=== PATIENT | female | born 1965 | race Caucasian/White ===

== ENCOUNTER 2019-12-06 08:49 | Outpatient (CLI) | payer OTHER, SELFPAY ==
--- NOTE | ~2019-12-06 | NM_ITS ---
NM stress w perf spect multi Procedure: The patient was stressed using Modified Spike protocol. Prior to the end of exercise 30 m Ci Tc 99m IV administered. Rest imaging performed following administration of 10.9 mCi Tc 99m IV. I mages were reformatted into short axis, horizontal and vertical long axis sections for visual and zeenat ntitative analysis. Indication: Shortness of breath Comparison: None Findings: Computer assisted qualitative and quantitative analysis of the immediate and delayed images revealed normal left ventricular perfusion without evidence of fixed or reversible perfusion abnorma lity to suggest ischemia or infarction. Normal left ventricular cavity size, wall motion and ejectio n fraction. Left ventricular ejection fraction measures 79. Impression: 1: No scintigraphic evidence of resting or stress induced perfusion abnormality. 2: Normal left ventricle ejection fraction measuring 79%. Reviewed, dictated and finalized at location A. Impression: 1: No scintigraphic evidence of resting or stress induced perfusion abnormality . 2: Normal left ventricle ejection fraction measuring 79%.
--- NOTE | 2019-12-06 09:07 | EST_ITS ---
Patient Info Name: Poornima Casas Age: 54 years : 1965 Gender: Female Ht: 63 in Wt: 150 lbs BSA: 1.76 m2 Exam Date: 12/06/2019 11:18 AM Exam Location: [facility] Stress Patient Status: Outpatient Admit Date: 12/06/2019 Staff Ordering Physician: Jose Andrade PA-C Attending Provider: Jose Andrade PA-C Exercise Technologist: Bhargavi Blas RDCS Exercise Physician: Dmitry Barton DO Exam Type: CA stress test treadmill w NM Study Info Indications R06.02 - Shortness of breath A pharmacological stress test was performed. Summary 1. 1. Negative Spike exercise stress test for ischemic ST changes by ECG criteria. 2. 2. Reduced functional capacity, achieving 7 METs of workload. 3. 3. Appropriate HR response to exercise. 4. 4. Appropriate HR recovery at 1 minute post exercise. 5. 5. Nuclear scan to follow and will be reported separately. Please correlate with it. 6. 6. Patient informed of the above results. Protocol: Spike Stress ECG Details Stage: REST Duration (min): 0 min : 50 sec Speed (mph): 0.0 Grade (%): 0 HR (bpm): 65 SBP (mmHg): 137 DBP (mmHg): 77 METS: --- Stage: REST Duration (min): 9 min : 29 sec Speed (mph): 0.0 Grade (%): 0 HR (bpm): 73 SBP (mmHg): 137 DBP (mmHg): 77 METS: --- Stage: STAGE 1 Duration (min): 1 min : 0 sec Speed (mph): 1.7 Grade (%): 10 HR (bpm): 96 SBP (mmHg): 137 DBP (mmHg): 77 METS: --- Stage: STAGE 1 Duration (min): 2 min : 0 sec Speed (mph): 1.7 Grade (%): 10 HR (bpm): 113 SBP (mmHg): 137 DBP (mmHg): 77 METS: --- Stage: STAGE 1 Duration (min): 3 min : 0 sec Speed (mph): 1.7 Grade (%): 10 HR (bpm): 123 SBP (mmHg): 177 DBP (mmHg): 75 METS: --- Stage: STAGE 2 Duration (min): 1 min : 0 sec Speed (mph): 2.5 Grade (%): 12 HR (bpm): 138 SBP (mmHg): 177 DBP (mmHg): 75 METS: --- Stage: STAGE 2 Duration (min): 2 min : 0 sec Speed (mph): 2.5 Grade (%): 12 HR (bpm): 151 SBP (mmHg): 177 DBP (mmHg): 75 METS: --- Stage: STAGE 2 Duration (min): 2 min : 31 sec Speed (mph): 2.5 Grade (%): 12 HR (bpm): 155 SBP (mmHg): 177 DBP (mmHg): 75 METS: --- Stage: RECOVERY Duration (min): 0 min : 28 sec Speed (mph): 0.0 Grade (%): 0 HR (bpm): 148 SBP (mmHg): 177 DBP (mmHg): 75 METS: --- Stage: RECOVERY Duration (min): 1 min : 28 sec Speed (mph): 0.0 Grade (%): 0 HR (bpm): 113 SBP (mmHg): 171 DBP (mmHg): 89 METS: --- Stage: RECOVERY Duration (min): 2 min : 28 sec Speed (mph): 0.0 Grade (%): 0 HR (bpm): 96 SBP (mmHg): 171 DBP (mmHg): 89 METS: --- Stage: RECOVERY Duration (min): 3 min : 28 sec Speed (mph): 0.0 Grade (%): 0 HR (bpm): 96 SBP (mmHg): 178 DBP (mmHg): 92 METS: --- Stage:
--- NOTE | 2019-12-09 16:54 | WPDHOLTEREM ---
Holter/Event Monitor Holter/Event Monitor Date of procedure: 12/06/19 Procedure Type: 24 hour holter monitor Indications: Palpitations Conclusion: 1. 24 hour holter monitor on 12/06/19. 2. Underlying rhythm is sinus rhythm. HR range 51-112 bpm; average HR 77 bpm. 3. There are 29 premature supraventricular complexes. No supraventricular tachycardia. 4. There are 4 premature ventricular complexes and 1 ventricular couplet. No ventricular tachycardia. 5. No sinoatrial or atrioventricular blocks. No significant pauses greater than 2 seconds. 6. No symptoms available for correlation.
== END 2019-12-06 08:50 | disposition home or self-care (01) ==
LOC: ANHCARD 08:56
PROVIDERS: PCP Physician Assistant; Visit Provider Physician Assistant
DX: R00.2 Palpitations (principal); R06.02 Shortness of breath
CPT/HCPCS: 78452; 93017; 93225; 93226; A9502

== ENCOUNTER 2021-01-09 16:24 | Outpatient (CLI) | payer OTHER, SELFPAY ==
[2021-01-09 17:14] LABS: Add Urine Microscopic? NO; Appearance Urine Clear (Clear); Bilirubin Urine Negative (Negative); Blood Urine Negative (Negative); Color Urine Yellow (Yellow); Glucose Urine UA Negative (Negative); Ketones Urine Negative (Negative); Leukocyte Esterase Ur Negative LEU/UL (NEGATIVE); Nitrate Urine Negative (Negative); Protein Urine Negative (Negative); Specific Grav Ur 1.024 (1.001-1.035); Urobilinogen Urine Negative mg/dL (<2.0)
== END 2021-01-09 16:25 | disposition home or self-care (01) ==
LOC: ANHLAB 16:26
PROVIDERS: PCP Physician Assistant; Visit Provider Physician Assistant
DX: R10.9 Unspecified abdominal pain (principal)
CPT/HCPCS: 81003; 87077; 87086; 87088

== ENCOUNTER 2021-08-09 16:56 | Outpatient (CLI) | payer OTHER, SELFPAY ==
--- NOTE | ~2021-08-09 | MM_ITS ---
EXAMINATION: MM screening chadd BI w rashawn HISTORY: Screening mammogram TECHNIQUE: Craniocaudal and mediolateral oblique 3-D tomosynthesis images were obtained and synthetic 2-D images were generated. CAD analysis was submitted and interpreted. COMPARISON: 08/04/2014 BREAST PARENCHYMAL COMPOSITION: The breasts are heterogeneously dense, which may obscure small masses . FINDINGS: Scattered benign-appearing calcifications are present. There is no evidence of suspicious m ass, calcification, or architectural distortion to suggest malignancy in either breast. There has bee n no suspicious interval change. IMPRESSION: 1. No mammographic evidence of malignancy. 2. Recommend routine screening mammography in one year. BI-RADS Category 2: Benign finding(s). Reviewed, dictated and finalized at location A. USEMENT OR RECREATION CARD CHECKER
== END 2021-08-09 16:57 | disposition home or self-care (01) ==
LOC: ANHIMG 16:57
PROVIDERS: PCP Physician Assistant; Visit Provider Obstetrics & Gynecology
DX: Z12.31 Encounter for screening mammogram for malignant neoplasm of breast (principal)
CPT/HCPCS: 77063; 77067

== ENCOUNTER 2022-07-29 07:19 | Day surgery (SDC) | payer OTHER, SELFPAY ==
[2022-07-22 13:38] VITALS: BMI 25.5
--- NOTE | 2022-07-29 06:56 | P.PNAN_ITS ---
Anes - Initial Pre Proc Eval Procedure: Operation Date: 07/29/22 09:00 Proposed Procedures p Screening Colonoscopy - Keny Stone MD Date/Time: 07/29/22 06:56 Surgeon: Keny Stone MD Pre Op Diagnosis: Neoplasm Screening Patient Data Age: 57 Gender: F Height: 1.6 m Weight: 65.5 kg Allergies Allergy/AdvReac Type Severity Reaction Status Date / Time No Known Allergies Allergy Unknown Verified 07/29/22 08:15 Home Medications Medication Instructions Recorded Confirmed Type estradiol-norethindrone acet 1 1 tablet PO DAILY 09/28/19 07/29/22 History mg-0.5 mg tablet zolpidem 10 mg tablet 10 mg PO .hs 09/28/19 07/29/22 History cyanocobalamin (vitamin B-12) 1,000 mcg PO DAILY #90 tabs 07/09/21 07/29/22 Rx 1,000 mcg tablet sodium,potassium,mag sulfates 17.5 See Rx Instructions PO .COMPLEX 07/19/22 07/29/22 Rx gram-3.13 gram-1.6 gram oral soln #354 mL (Suprep Bowel Prep Kit) Patient hx anesthesia problems: none Family hx anesthesia problems: none Results Review: All pre-operative results and documents have been reviewed as part of the pre- operative evaluation. [facility] Past Medical History Medical History (Updated 07/29/22 @ 08:56 by Chintan Riley DO) COPD (chronic obstructive pulmonary disease) his respiratory failure requiring intubation 2015 Family History Family History Father Patient's father is in good health Sibling Patient's sister is in good health Patient's brother is in good health Mother Family history of lung cancer, Onset Age: 61 Social History Social History (Updated 07/29/22 @ 08:56 by Chintan Riley DO) Smoking status: Former smoker Second hand tobacco smoke exposure: No Smoking end date: 04/08/16 Additional smoking assessment comments: 1.5 PPD x 20 years prior Alcohol intake: current Substance use type: does not use Lack of Transportation: No Lack of Food: Never True Current Housing: I Have Housing Concerned About Future Housing: No Difficulty Paying Gas/Electric Bills: No Difficulty Paying for Meds: No Currently Unemployed: No Education: High School Diploma/GED Difficulty w/ Childcare or Family Care: No Living arrangements: with family Spiritual care concerns: No Anes - Eval Final PreProcedure Day of Procedure 07/29/22 06:56 Patient weight: overweight Heart: regular rate and rhythm Lungs: clear to auscultation Airway: Mallampati scale class II Neurological: alert and oriented Last oral intake: >/= 8 hours ASA classification: III Emergent: no Anesthetic plan: proceed Anesthesia type and monitoring: general GIVS and standard monitoring Results Review: All pre-operative results and documents have been reviewed as part of the pre- operative evaluation. Informed Consent: The patient's anesthetic plan and its attendant risks and benefits were discussed with the patient/family/POA. Questions were solicited and answers provided to the satisfaction of the patient/family/POA.
[2022-07-29 07:30] VITALS: BP 102/57; PULSE 74; RESP 20; TEMP 36.7; O2SAT 98
[2022-07-29] MEDS: LACTATED RINGERS 1,000 ML 150 ML IV CONT (08:20)
--- NOTE | 2022-07-29 08:23 | P.HP_ITS ---
History of Present Illness History of Present Illness Consent: Risks, benefits, and alternatives have been discussed and questions answered. Patient agrees to proceed with procedure. Chief complaint: Neoplasm Screening Narrative: Poornima Casas is a 57 year old female Presents for screening colonoscopy. Patient's current weight appetite bowel movements are normal. Patient denies abdominal pain she has had no bleeding. Family history is significant her gra ndmother had colon cancer. Her mother had polyps. Patient presents today for screening colonoscopy Review of Systems Review of Systems: review of systems noncontributory. [facility] Family History Family History Father Patient's father is in good health Sibling Patient's sister is in good health Patient's brother is in good health Mother Family history of lung cancer, Onset Age: 61 Social History Social History Smoking status: Never smoker Second hand tobacco smoke exposure: No Smoking end date: 04/08/16 Alcohol intake: current Substance use type: does not use Lack of Transportation: No Lack of Food: Never True Current Housing: I Have Housing Concerned About Future Housing: No Difficulty Paying Gas/Electric Bills: No Difficulty Paying for Meds: No Currently Unemployed: No Education: High School Diploma/GED Difficulty w/ Childcare or Family Care: No Living arrangements: with family Spiritual care concerns: No Meds Home Medications and Allergies Home Medications Medication Instructions Recorded Confirmed Type estradiol-norethindrone acet 1 1 tablet PO DAILY 09/28/19 07/29/22 History mg-0.5 mg tablet zolpidem 10 mg tablet 10 mg PO .hs 09/28/19 07/29/22 History cyanocobalamin (vitamin B-12) 1,000 mcg PO DAILY #90 tabs 07/09/21 07/29/22 Rx 1,000 mcg tablet sodium,potassium,mag sulfates 17.5 See Rx Instructions PO .COMPLEX 07/19/22 07/29/22 Rx gram-3.13 gram-1.6 gram oral soln #354 mL (Suprep Bowel Prep Kit) Allergies Allergy/AdvReac Type Severity Reaction Status Date / Time No Known Allergies Allergy Unknown Verified 07/29/22 08:15 Vital Signs Vital Signs - 24 hr 07/29/22 07:30 Temperature 98.0 F Pulse Rate 74 Respiratory Rate 20 Blood Pressure 102/57 L Pulse Oximetry 98 Oxygen Delivery Room Air Exam Narrative: Physical exam reveals patient to be alert. Vital signs stable. HEENT exam is unremarkable. Patient is anicteric. Lungs are clear to a uscultation and percussion. Heart is without murmur or extra sounds. Abdomen bowel sounds are present soft nontender with no organomegaly. Digital external rectal exam is normal. Assessment and Plan Assessment and plan (1) Family history of colonic polyps: Code(s): Z83.71 - Family history of colonic polyps Status: Acute Assessment and Plan: Patient's mother there had colon polyps. Her grandmother had colon cancer. Plan to consider follow-up colonoscopy at 5-7 years in the future.
[2022-07-29 09:18] VITALS: BP 110/60; PULSE 72; RESP 16; O2SAT 100
[2022-07-29 09:28] VITALS: BP 118/60; PULSE 68; RESP 16; O2SAT 98
--- NOTE | 2022-07-29 09:35 | SUR.PHASEII ---
PT AWAKE AND ALERT. TALKATIVE. DRINKING WATER. DENIES PAIN.
[2022-07-29 09:38] VITALS: BP 115/56; PULSE 68; RESP 16; O2SAT 98
--- NOTE | 2022-07-29 12:42 | WPDANESPN ---
Anes - Prog Note Post-Op Date/Time: 07/29/22 12:42 Cardiovascular status: normal Respiratory status: normal Airway patency: baseline Mental status: baseline Post-Op hydration status: normal Vital Signs: Last Vital Signs Temp 36.7 C 07/29/22 07:30 Pulse 68 07/29/22 09:38 Resp 16 07/29/22 09:38 BP 115/56 L 07/29/22 09:38 Pulse Ox 98 07/29/22 09:38 O2 Del Method Room Air 07/29/22 09:38 Pain Score (VAS): 0 I/O: Intake & Output 07/28/22 07/29/22 07/29/22 23:59 07:59 15:59 Intake Total 700 Balance 700 Post-procedural complaints: none Patient Feedback: Patient satisfied with anesthetic care. Other Findings: Patient vital signs back to baseline. Patient denies nausea and vomiting. Patient's pain under control. Patient OK for discharge.
== END 2022-07-29 09:53 | disposition home or self-care (01) ==
PROVIDERS: PCP Physician Assistant; Visit Provider Internal Medicine Gastroenterology
PROC: 0DJD8ZZ Inspection of Lower Intestinal Tract, Via Natural or Artificial Opening Endoscopic (ICD-10-PCS; CPT 45378; principal; 2022-07-29 09:00)
DX: Z83.71 Family history of colonic polyps (principal)
CPT/HCPCS: 45378

== ENCOUNTER 2022-09-03 16:14 | Outpatient (CLI) | payer OTHER, SELFPAY ==
--- NOTE | ~2022-09-03 | MM_ITS ---
EXAMINATION: MM screening chadd BI w rashawn HISTORY: Screening TECHNIQUE: Craniocaudal and mediolateral oblique 3-D tomosynthesis images were obtained and synthetic 2-D images were generated. CAD analysis was submitted and interpreted. COMPARISON: Comparison to multiple prior studies sequentially, with oldest reviewed study dated 08/04. BREAST PARENCHYMAL COMPOSITION: The breasts are heterogeneously dense, which may obscure small masses FINDINGS: There is no evidence of suspicious mass, calcification, or architectural distortion to sugg est malignancy in either breast. There has been no suspicious interval change. IMPRESSION: 1. No mammographic evidence of malignancy. 2. Recommend routine screening mammography in one year. BI-RADS Category 1: Negative Reviewed, dictated and finalized at location A.
== END 2022-09-03 16:15 | disposition home or self-care (01) ==
PROVIDERS: PCP Physician Assistant; Visit Provider Obstetrics & Gynecology
DX: Z12.31 Encounter for screening mammogram for malignant neoplasm of breast (principal)
CPT/HCPCS: 77063; 77067

== ENCOUNTER 2023-11-19 15:34 | Outpatient (CLI) | payer OTHER, SELFPAY ==
--- NOTE | ~2023-11-19 | MM_ITS ---
EXAMINATION: MM screening chadd BI w rashawn HISTORY: Screening TECHNIQUE: Craniocaudal and mediolateral oblique 3-D tomosynthesis images were obtained and synthetic 2-D images were generated. CAD analysis was submitted and interpreted. COMPARISON: Comparison to multiple prior studies sequentially, with oldest reviewed study dated 08/04. BREAST PARENCHYMAL COMPOSITION: Dense: The breasts are extremely dense, which lowers the sensitivity of mammography. FINDINGS: There is no evidence of suspicious mass, calcification, or architectural distortion to sugg est malignancy in either breast. There has been no suspicious interval change. IMPRESSION: 1. No mammographic evidence of malignancy. 2. Recommend routine screening mammography in one year. BI-RADS Category 1: Negative Reviewed, dictated and finalized at location B.
== END 2023-11-19 15:35 | disposition home or self-care (01) ==
LOC: ANHIMG 15:36
PROVIDERS: PCP Physician Assistant; Visit Provider Obstetrics & Gynecology
DX: Z12.31 Encounter for screening mammogram for malignant neoplasm of breast (principal)
CPT/HCPCS: 77063; 77067

== ENCOUNTER 2024-03-21 14:25 | Emergency (ER) | payer OTHER, SELFPAY ==
--- NOTE | ~2024-03-21 | XR_ITS ---
EXAM: XR ankle RT min 3V DATE: 03/21/2024 14:45 HISTORY: FALL YESTERDAY SWELLING AND PAIN UP THE LEG TO MID TIBFIB . COMPARISON: None available. FINDINGS: Normal mineralization. No fracture or dislocation. No lytic or blastic lesion. Mild degene rative change at the ankle joint and multiple midfoot joints. Achilles enthesopathy. No erosion or pe riosteal change. Soft tissues within normal limits. IMPRESSION: No acute osseous finding the right ankle. Reviewed, dictated and finalized at location K.
--- NOTE | ~2024-03-21 | XR_ITS ---
EXAM: XR foot RT min 3V, XR tibia fibula RT 2V DATE: 03/21/2024 15:19 HISTORY: swollen ankle, foot injury . COMPARISON: None available. FINDINGS: Normal mineralization. Tiny ossific fragment at the tip of the medial malleolus. Oblique m inimally displaced fracture of the fibular head. No lytic or blastic lesion. Moderate scattered degen erative change. Achilles enthesopathy. No erosion or periosteal change. Soft tissues within normal li mits. IMPRESSION: Possible acute avulsion fracture at the tip of the medial malleolus, correlate for point tenderness. Oblique minimally displaced fibular head fracture. Recommend dedicated radiographs of the ankle further evaluation. Reviewed, dictated and finalized at location K. IMPRESSION: Possible acute avulsion fracture at the tip of the medial malleolus , correlate for point tenderness. Oblique minimally displaced fibular head frac ture. Recommend dedicated radiographs of the ankle further evaluation.
[2024-03-21 14:27] VITALS: BP 106/56; PULSE 73; RESP 15; TEMP 36.6; O2SAT 96
--- NOTE | 2024-03-21 15:14 | ED.FALL ---
HPI - Fall General Chief Complaint: Fall Stated Complaint: fall Time Seen by Provider: 03/21/24 14:45 Source: patient and family Mode of arrival: ambulatory Limitations: no limitations History of Present Illness HPI Narrative: Patient is a 58-year-old female who presents to the ER with right lower extremity pain after a fall. She reports yesterday she rolled her ankle and fell on rocks. Patient reports her, calf, and lower right extremity hurt, especially when she takes a step and pressure on the heel of her foot. She reports her only medical history is COPD. Patient reports she took ibuprofen this morning and is not having much pain at this time. Related Data Home Medications Medication Instructions Recorded Confirmed estradiol-norethindrone acet 1 1 tablet PO DAILY 09/28/19 03/19/24 mg-0.5 mg tablet zolpidem 10 mg tablet 10 mg PO .hs 09/28/19 03/19/24 Allergies Allergy/AdvReac Type Severity Reaction Status Date / Time No Known Allergies Allergy Unknown Verified 03/21/24 14:41 Review of Systems Review of Systems: All systems reviewed & are unremarkable except as noted in HPI and below PMFSH Past Medical History Medical History COPD (chronic obstructive pulmonary disease) his respiratory failure requiring intubation 2015 Family History Family History Father Patient's father is in good health Sibling Patient's sister is in good health Patient's brother is in good health Mother Family history of lung cancer, Onset Age: 61 Social History Social History Smoking status: Former smoker Second hand tobacco smoke exposure: No Smoking end date: 04/08/16 Additional smoking assessment comments: 1.5 PPD x 20 years prior Alcohol intake: current Substance use type: does not use Lack of Transportation: No Lack of Food: Never True Current Housing: I Have Housing Concerned About Future Housing: No Difficulty Paying Gas/Electric Bills: No Difficulty Paying for Meds: No Currently Unemployed: No Education: High School Diploma/GED Difficulty w/ Childcare or Family Care: No Living arrangements: with family Spiritual care concerns: No Exam Narrative: GENERAL: Well appearing, well-nourished, non-toxic, in no acute distress. RESPIRATORY: Airway patent, respirations nonlabored. Clear to auscultation bilaterally, no rales, rhonchi, wheezing. CARDIOVASCULAR: Regular rate and rhythm without murmurs, rubs, or gallops. Peripheral pulses 2+ and equal bilaterally. MUSCULOSKELETAL: Moves all extremities. Pt has increased pain with extension, abduction and abduction, but patient does endorse heel pain with flexion. SKIN: Warm, dry, normal color. Abrasion on the RLE anterior portion of her calf. Swollen, bruised RLE, centralized around the ankle. NEURO: A&O X3. Speech clear. Cranial nerves II-XII grossly intact. No ataxic movements. PSYCHIATRIC: Appropriate mood and affect. Normal interaction. Course Consultations Consultation #1: Orthopedic surgery, Dr. Yadav-advised follow-up out-patient Date: 03/21/24 Time: 16:30 Vital Signs Vital signs: Vital Signs Temperature 36.6 C 03/21/24 14:27 Pulse Rate 73 03/21/24 14:27 Respiratory Rate 15 03/21/24 14:27 Blood Pressure 106/56 L 03/21/24 14:27 Pulse Oximetry 96 03/21/24 14:27 Oxygen Delivery Room Air 03/21/24 14:27 Temperature 36.6 C 03/21/24 14:27 Pulse Rate 73 03/21/24 14:27 Respiratory Rate 15 03/21/24 14:27 Blood Pressure 106/56 L 03/21/24 14:27 Pulse Oximetry 96 03/21/24 14:27 Oxygen Delivery Room Air 03/21/24 14:27 MDM - Fall MDM Narrative Medical decision making narrative: Patient is a 58-year-old female who presents to the ER with right lower extremity pain after a fall. She reports y
== END 2024-03-21 17:18 | disposition home or self-care (01) ==
PROVIDERS: Emergency Provider Registered Nurse; PCP Internal Medicine
DX: S82.51XA Displaced fracture of medial malleolus of right tibia, initial encounter for closed fracture (principal); J44.9 Chronic obstructive pulmonary disease, unspecified; Z87.891 Personal history of nicotine dependence; W18.39XA Other fall on same level, initial encounter
CPT/HCPCS: 29515; 73590; 73610; 73630; 99284

== ENCOUNTER 2024-04-09 08:37 | Outpatient (CLI) | payer OTHER, SELFPAY ==
--- NOTE | ~2024-04-09 | XR_ITS ---
EXAMINATION: XR thoracic spine 2V DATE: 04/09/2024 09:18 INDICATION: Pain in thoracic spine. TECHNIQUE: 3 views of thoracic spine were obtained. COMPARISON: None. FINDINGS: There is 29 degrees levoscoliosis of upper thoracic spine and 28 degrees dextroscoliosis of lower thoracic spine. There are distraction rods on the left from T5 to L1. Vertebral body heights a re normal. There is mildly decreased disc height at many levels. IMPRESSION: 1. Mild thoracic spondylosis. 2. Scoliosis with instrumentation. Reviewed, dictated and finalized at location B.
== END 2024-04-09 08:38 | disposition home or self-care (01) ==
LOC: ANHIMG 08:41
PROVIDERS: PCP Internal Medicine; Visit Provider Nurse Practitioner
DX: M47.894 Other spondylosis, thoracic region (principal); M41.9 Scoliosis, unspecified
CPT/HCPCS: 72070

== ENCOUNTER 2024-07-09 09:08 | Outpatient (CLI) | payer OTHER, SELFPAY ==
--- NOTE | ~2024-07-09 | CT_ITS ---
EXAMINATION:CT lung screening DATE: 07/09/2024 10:38 INDICATION: Personal history of nicotine dependence. Current smoker with 34 pack year history. TECHNIQUE: Computed tomography (CT) of the chest was performed without intravenous contrast. Automate d exposure control and iterative reconstruction technique were employed. The dose-length product (DLP ) was 63.58 mGy-cm. COMPARISON: None. FINDINGS: There is mild emphysema. There are nodules in the lungs measuring up to 3 mm. There is mini mal atelectasis bilaterally. No pleural effusion. The heart size is normal. There are coronary artery calcifications. No pericardial effusion. There are changes of posterior fusion procedure in thoracic spine. There is levoscoliosis of upper thoracic spine and dextroscoliosis of lower thoracic spine. IMPRESSION: 1. Lung-RADS category 2: Benign appearance or behavior. Continue annual screening with noncontrast lo w-dose chest CT in 12 months. Reviewed, dictated and finalized at location A. [employer] ACREAGE MEASURER IMPRESSION: 1. Lung-RADS category 2: Benign appearance or behavior. Continue annual screeni ng with noncontrast low-dose chest CT in 12 months.
--- OUTSIDE RECORDS SUMMARY | 2024-07-09 09:26 | XMS_ITS | CONTINUITY OF CARE DOCUMENT ---
Author Name breezy tijerina Address Unknown Organization [facility] Address [id number] [place] [address] [address] [place] [address] Phone [phone] Care Team Providers Care Wire Galvanizer Name Role Phone Abdifatah PIRES, Darío Unavailable [phone] Abdifatah PIRES, Darío Unavailable [phone] KEVON PIRES, EULALIA Unavailable INSURANCE PROVIDERS Payer name Policy type / Coverage type [place] red democrat [employer] [facility] [employer] [id number]
--- OUTSIDE RECORDS SUMMARY | 2024-07-09 09:26 | XMS_ITS | Patient Health Summary ---
Author Organization [facility] Address [address] [place] [address] Care Team Providers Care Production Finisher Name Role Phone Prince Hernandez DO Primary Care Provider [phone] Note from [facility],non-owned Affiliates and Associated Physician Practices is amultiple site organization consisting of ambulatory clinics and hospital sitesin [place], [place], [place] and [place]. This disclosure is being madepursuant to the Care Everywhere program and may not contain all information available regarding this patient. Last updated 18.[facility] Allergies No known active allergies Medications * Be aware that medications may not be up to date on this document. Alwaysverify current medications with the patient. * estradiol (Estrace) 1 MG tablet Take 1 (one) tablet by mouth once daily * albuterol HFA (Proventil; Ventolin; Proair) 108 (90 Base) MCG/ACT inhaler (Started 02/06/2024) INHALE 2 PUFFS BY MOUTH EVERY 6 HOURS NEEDED FOR SHORTNESS OF BREATH FOR WHEEZING * zolpidem (Ambien) 5 MG tablet Take 1 (one) tablet by mouth nightly as needed for Insomnia Active Problems No known active problems Social History Tobacco Use Types Packs/Day Years Used Date Smoking Tobacco: Never Assessed Sex and Gender Information Value Date Recorded Sex Assigned at Not on file Gender Identity Not on file Sexual Orientation Not on file Care Teams Production Finisher Relationship Specialty Start Date End Date Prince Hernandez DO [address] [facility] [address] [place], [place] [id number] PCP - General 03/24/19
--- OUTSIDE RECORDS SUMMARY | 2024-07-09 09:26 | XMS_ITS | Referral Summary ---
Author Organization [facility] Address [address] [place] [address] Care Team Providers Care Float Operator Name Role Phone David Princenilson High DO Primary Care Provider [phone] Source Comments [facility],non-owned Affiliates and Associated Physician Practices is amultiple site organization consisting of ambulatory clinics and hospital sitesin [place], [place], [place] and [place]. This disclosure is being madepursuant to the Care Everywhere program and may not contain all information available regarding this patient. Last updated 18.[facility] Allergies No known active allergies Medications * Be aware that medications may not be up to date on this document. Alwaysverify current medications with the patient. Medication Sig Dispensed Refills Start Date End Date Status estradiol (Estrace) 1 MG tablet Take 1 (one) tablet by mouth once daily Active albuterol HFA (Proventil; Ventolin; Proair) 108 (90 Base) MCG/ACT inhaler INHALE 2 PUFFS BY MOUTH EVERY 6 HOURS NEEDED FOR SHORTNESS OF BREATH FOR WHEEZING 02/06/2024 Active zolpidem (Ambien) 5 MG tablet Take 1 (one) tablet by mouth nightly as needed for Insomnia Active Active Problems No known active problems Social History Tobacco Use Types Packs/Day Years Used Date Smoking Tobacco: Never Assessed Sex and Gender Information Value Date Recorded Sex Assigned at Not on file Gender Identity Not on file Sexual Orientation Not on file Plan of Treatment Not on file Care Teams Float Operator Relationship Specialty Start Date End Date Prince Hernandez DO [address] [facility] [address] [place] [address] PCP - General 03/24/19
--- OUTSIDE RECORDS SUMMARY | 2024-07-09 09:26 | XMS_ITS | Clinical Summary ---
Author Organization [facility] [employer] Address [address] [place] [address] Care Team Providers Care Cement Finisher Apprentice Name Role Phone Prince Hernandez DO Primary Care Provider [phone] Source Comments [facility] [employer],non-owned Affiliates and Associated Physician Practices is amultiple site organization consisting of ambulatory clinics and hospital sitesin [place], [place], [place] and [place]. This disclosure is being madepursuant to the Care Everywhere program and may not contain all information available regarding this patient. Last updated 18.[facility] [employer] Allergies No known active allergies Medications * [...] Orientation Not on file Plan of Treatment Health Maintenance Due Date Last Done Comments COLOGUARD (AGES 45-75) - COL ON CA SCREENING 1966 COLON MONITORING 1966 COLONOSCOPY - COLON CA SCREENING 1966 CT COLONOGRAPHY - COLON CA SCREENING 1966 Colorectal Cancer Screening 1966 FIT - COLON CA SCREENING 1966 FLEX SIG - COLON CA SCREENING 1966 LIPID TESTING 1966 MAMMOGRAM 1966 PAP SMEAR 1966 HIV SCREENING 1981 HEPATITIS C SCREENING 05/25/1984 DTAP/TDAP/TD VACCINES (1 - Tdap) 1985 HEPATITIS B VACCINE (1 of 3 - 19+ 3-dose series) 1985 PNEUMOCOCCAL VACCINE 50+ (1 of 1 - PCV) 2016 ZOSTER VACCINE (1 of 2) 2016 COVID-19 VACCINE ( - 2023-2 5 season) 2024 INFLUENZA VACCINE (#1) 2024 DEPRESSION SCREENING 06/09/2024 HIB VACCINE Aged Out No longer eligi ble based on patient's age to complete this topic HPV VACCINE Aged Out No longer eligi ble based on patient's age to complete this topic MENINGOCOCCAL (Group B) VACCINE Aged Out No longer eligible based on patient's age to complete this topic MENINGOCOCCAL VACCINE Aged Out No masha mitch eligible based on patient's age to complete this topic PNEUMOCOCCAL VACCINE Aged Out No long er eligible based on patient's age to complete this topic Care Teams Cement Finisher Apprentice Relationship Specialty Start Date End Date Prince Hernandez DO [address] [place] [address] PCP - General 03/24/19
--- NOTE | 2024-07-09 12:34 | WPDSIXMINUTE ---
Six Minute Walk Procedure Procedure Performed Pulmonary Stress Test (6 min walk) Six Minute Walk Six Minute Walk: This is a 6 minute walk test. The test was performed and interpreted in accordance with the 2014 ERS/ATS task force guidelines. Findings: The patient's resting room air oxygen saturation measured by pulse oximetry was 94%, the heart rate was 67 bpm, and the modified Aliyah dyspnea score was 0.5. Patient ambulated for 335 meters and oxygen saturation remained 92 to 97%. At the end of the study the heart rate was 93 bpm and the modified Aliyah dyspnea score was 1. The patient did not qualify for supplemental oxygen at rest or with ambulation. There are no prior studies for comparison.
--- NOTE | 2024-07-09 12:35 | WPDPFTINT ---
PFT Procedure Performed PFT Procedure Performed Spirometry with Pre/Post Bronchodilator Plethysmography (Lung Vol) Diffusing Cap (DLCO) Flow Vol Loop PFT Interpretation This is a pulmonary function test with pre and post-bronchodilator spirometry, plethysmography and diffusing capacity. The test was performed and results interpreted in accordance with the 2019 and 2005 ATS/ERS Task Force guidelines respectively using the Global Lung Function Initiative-2012 reference equations. Patient demonstrated good effort and cooperation. Reproducibility criteria were met. The quality of the pre bronchodilator spirometry maneuver was Grade A and post bronchodilator spirometry maneuver was Grade A. Findings: Spirometry: There is decreased maximal expiratory airflow at low lung volumes with concave expiratory flow tracing. The contour of the inspiratory flow tracing is normal. The pre bronchodilator FVC is 2.57 L, 83% predicted. The pre bronchodilator FEV1 is 1.64 L, 67% predicted. The pre bronchodilator FEV1: FVC ratio 64%. The post bronchodilator FVC is 2.73 L, representing a 6% increase. The post bronchodilator FEV1 is 1.66 L, representing a 1% increase. The post bronchodilator FEV1: FVC ratio 61%. Plethysmography: The total lung capacity is 6.00 L, 122% predicted. The functional residual capacity is 2.73 L, 99% predicted. The residual volume is 2.44 L, 129% predicted. Diffusing capacity: The diffusing capacity unadjusted for hemoglobin and carboxyhemoglobin is 10.3, 48% predicted. The diffusing capacity adjusted for alveolar volume is 3.10, 69% predicted. In comparison to previous pulmonary function testing on 05/29/2016 the post bronchodilator FVC is unchanged from 2.79 L to 2.73 L. The post bronchodilator FEV1 is decreased from 2.09 L to 1.66 L. The total lung capacity is unchanged from 5.90 L to 6.00 L. The functional residual capacity is unchanged from 2.65 L to 2.73 L. The residual volume is unchanged from 2.58 L to 2.44 L. The diffusing capacity unadjusted for hemoglobin and carboxyhemoglobin is decreased from 14.0 to 10.3. The diffusing capacity adjusted for alveolar volume is decreased from 4.13 to 3.10 Impression: There is a moderate obstructive abnormality. There is no significant improvement after inhaling a single dose of albuterol. The lung volumes are normal. The diffusing capacity unadjusted for hemoglobin and carboxyhemoglobin is moderately decreased and remains mildly decreased when adjusted for alveolar volume. In comparison to previous pulmonary function testing on 05/29/2016 there has been a greater than anticipated time dependent decrease in the FEV1 and diffusing capacity with no significant change in the FVC, total lung capacity, functional residual capacity or residual volume. Clinical correlation is recommended.
== END 2024-07-09 09:09 | disposition home or self-care (01) ==
PROVIDERS: PCP Internal Medicine; Visit Provider Physician Assistant
DX: Z12.2 Encounter for screening for malignant neoplasm of respiratory organs (principal); J44.9 Chronic obstructive pulmonary disease, unspecified; Z87.891 Personal history of nicotine dependence
CPT/HCPCS: 71271; 94060; 94618; 94726; 94729

== ENCOUNTER 2024-07-24 17:26 | Emergency (ER) | payer OTHER, SELFPAY ==
[2024-07-24] VITALS (8 sets, daily range): BP systolic 106–143; BP diastolic 63–75; PULSE 80–104; RESP 18–24; TEMP 37.2; O2SAT 93–97
--- NOTE | ~2024-07-24 | XR_ITS ---
CHEST RADIOGRAPH, PA AND LATERAL CLINICAL HISTORY: SOB . COMPARISON: 08/04/2014 TECHNIQUE: PA and lateral views of the chest. FINDINGS The cardiomediastinal silhouette is unremarkable. The lungs are clear. Fixation hardware within the thoracic spine, unchanged from prior. Remaining osseous structures and soft tissues are otherwise unremarkable. IMPRESSION: No focal infiltrate or effusion. Reviewed, dictated and finalized at location A. [employer]
--- OUTSIDE RECORDS SUMMARY | 2024-07-24 17:28 | XMS_ITS | Patient Health Summary ---
Author Organization [facility] [employer] Address [address] [place] [address] Care Team Providers Care Appliance Repair Technician Name Role Phone Prince Hernandez DO Primary Care Provider [phone] Note from [facility],non-owned Affiliates and Associated Physician Practices is amultiple site organization consisting of ambulatory clinics and hospital sitesin [place], [place], [place] and [place]. This disclosure is being madepursuant to the Care Everywhere program and may not contain all information available regarding this patient. Last updated 18.[facility] [employer] Allergies No known active allergies Medications * [...] Sexual Orientation Not on file Care Teams Appliance Repair Technician Relationship Specialty Start Date End Date Prince Hernandez DO [address] [place], [place] [id number] PCP - General 03/24/19
--- OUTSIDE RECORDS SUMMARY | 2024-07-24 17:28 | XMS_ITS | Referral Summary ---
Author Organization [facility] Address [address] [place] [address] Care Team Providers Care Manager Secondary Name Role Phone David Princenilson High DO Primary Care Provider [phone] Source Comments [facility] [employer],non-owned Affiliates and Associated Physician Practices is amultiple site organization consisting of ambulatory clinics and hospital sitesin [place], [place], [place] and [place]. This disclosure is being madepursuant to the Care Everywhere program and may not contain all information available regarding this patient. Last updated 18.[facility] [employer] Allergies No known active allergies Medications * [...] of Treatment Not on file Care Teams Manager Secondary Relationship Specialty Start Date End Date Prince Hernandez DO [address] [place] [address] PCP - General 03/24/19
--- OUTSIDE RECORDS SUMMARY | 2024-07-24 17:28 | XMS_ITS | Clinical Summary ---
Author Organization [facility] [employer] Address [address] [place] [address] Care Team Providers Care Ski Instructor Name Role Phone Prince Hernandez DO Primary Care Provider [phone] Source Comments [facility] [employer],non-owned Affiliates and Associated Physician Practices is amultiple site organization consisting of ambulatory clinics and hospital sitesin [place], [place], [place] and [place]. This disclosure is being madepursuant to the Care Everywhere program and may not contain all information available regarding this patient. Last updated 18.[facility] [employer] Allergies No known active allergies Medications * [...] age to complete this topic Care Teams Ski Instructor Relationship Specialty Start Date End Date Prince Hernandez DO [address] [facility] [address] [place] [address] PCP - General 03/24/19
--- OUTSIDE RECORDS SUMMARY | 2024-07-24 18:22 | XMS_ITS | Clinical Summary ---
Author Organization [facility] [employer] Address [address] [address] Care Team Providers Care Diamond Wheel Edger Name Role Phone Prince Hernandez DO Primary Care Provider [phone] Source Comments [facility] [employer],non-owned Affiliates and Associated Physician Practices is amultiple site organization consisting of ambulatory clinics and hospital sitesin [place], [place], [place] and [place]. This disclosure is being madepursuant to the Care Everywhere program and may not contain all information available regarding this patient. Last updated 18.[facility] [employer] Allergies No known active allergies Medications * [...] age to complete this topic Care Teams Diamond Wheel Edger Relationship Specialty Start Date End Date Prince Hernandez DO [address] [place] [address] PCP - General 03/24/19
--- OUTSIDE RECORDS SUMMARY | 2024-07-24 18:22 | XMS_ITS | Referral Summary ---
Author Organization [facility] Address [address] [place] [address] Care Team Providers Care Tool Builder Name Role Phone David Princenilson High DO Primary Care Provider [phone] Source Comments [facility] [employer],non-owned Affiliates and Associated Physician Practices is amultiple site organization consisting of ambulatory clinics and hospital sitesin [place], [place], [place] and [place]. This disclosure is being madepursuant to the Care Everywhere program and may not contain all information available regarding this patient. Last updated 18.[facility] [employer] Allergies No known active allergies Medications * [...] of Treatment Not on file Care Teams Tool Builder Relationship Specialty Start Date End Date Prince Hernandez DO [address] [facility] [address] [place] [address] PCP - General 03/24/19
--- OUTSIDE RECORDS SUMMARY | 2024-07-24 18:22 | XMS_ITS | Patient Health Summary ---
Author Organization [facility] [employer] Address [address] [place] [address] Care Team Providers Care Cotton Broker Name Role Phone Prince Hernandez DO Primary Care Provider [phone] Note from [facility] [employer] [facility],non-owned Affiliates and Associated Physician Practices is amultiple site organization consisting of ambulatory clinics and hospital sitesin [place], [place], [place] and [place]. This disclosure is being madepursuant to the Care Everywhere program and may not contain all information available regarding this patient. Last updated 18.[facility] [employer] Allergies No known active allergies Medications * [...] Sexual Orientation Not on file Care Teams Cotton Broker Relationship Specialty Start Date End Date Prince Hernandez DO [address] [address] [place], [place] [id number] PCP - General 03/24/19
[2024-07-24 18:32] LABS: Influenza A QL RT-PCR Positive (Negative); Influenza B QL RT-PCR Negative (Negative); RSV RNA, RT-PCR Negative (Negative); SARS-CoV-2 RNA PCR Negative (Negative)
--- NOTE | 2024-07-24 18:35 | ECG_ITS ---
Test Date: 2024-07-24 19:19:44 Measurements Intervals Bruin Rate: 79 P: 52 CT: 172 QRS: 15 QRSD: 82 T: 53 QT: 326 QTc: 375 Interpretive Statements SINUS RHYTHM WITH SINUS ARRHYTHMIA POSSIBLE LEFT ATRIAL ENLARGEMENT CONSIDER RIGHT VENTRICULAR CONDUCTION DELAY DELAYED PRECORDIAL R/S TRANSITION BASELINE ARTIFACT- I, II, III, AVR, AVL, AVF, V1, V4 BORDERLINE ECG No previous ECG available for comparison Electronically Signed On 07-25-2024 08:17:27 AERODYNAMICS TEACHER by Dmitry Barton D.O.
--- NOTE | 2024-07-24 18:41 | ED_ITS ---
HPI - SOB/Dyspnea General Chief Complaint: Shortness of Breath/Dyspnea Stated Complaint: dyspnea has copd and bronchitis Time Seen by Provider: 07/24/24 18:16 Source: patient Mode of arrival: ambulatory Limitations: no limitations History of Present Illness HPI Narrative: This is of 59-year-old female with PMH of chronic bronchitis, COPD who presents to the ED for chief complaint of shortness of breath x3 4 days. Patient reports chills, low-grade fever and body aches since Friday. Patient states she has been doing all of her inhalers including nebulizers, Symbicort at home with minimal relief. Endorses productive cough. States that this kind of exacerbation it usually happens about twice a year and improves with steroids. Denies chest pain, abdominal pain, N/V. Related Data Home Medications ?Medication ?Instructions ?Recorded ?Confirmed ?Last Taken ?Type estradiol-norethindrone acet 1 1 tablet PO DAILY 09/28/19 05/26/24 Unknown History mg-0.5 mg tablet zolpidem 10 mg tablet 10 mg PO .hs 09/28/19 05/26/24 Unknown History Allergies Allergy/AdvReac Type Severity Reaction Status Date / Time No Known Allergies Allergy Unknown Verified 07/24/24 18:30 Review of Systems 2 Review of Systems: All systems as dictated in HPI [facility] Past Medical History Medical History COPD (chronic obstructive pulmonary disease) his respiratory failure requiring intubation 2015 Surgical History Surgical History History of back surgery (~1981) Family History Family History Father Patient's father is in good health Sibling Patient's sister is in good health Patient's brother is in good health Mother Family history of lung cancer, Onset Age: 61 Social History Social History (Updated 05/26/24 @ 08:53 by Catherine Pérez CMA) Smoking status: Former smoker Second hand tobacco smoke exposure: No Smoking end date: 04/08/16 Additional smoking assessment comments: 1.5 PPD x 20 years prior Alcohol intake: current Substance use type: does not use Do You Feel Safe in your Home?: Yes Lack of Transportation: No Lack of Food: Never True Current Housing: I Have Housing Concerned About Future Housing: No Difficulty Paying Gas/Electric Bills: No Difficulty Paying for Meds: No Currently Unemployed: No Education: High School Diploma/GED Difficulty w/ Childcare or Family Care: No Living arrangements: with family Spiritual care concerns: No Exam 2 Narrative: GENERAL: Well-appearing, well-nourished, and in no acute distress. HEAD: Normocephalic, atraumatic. EYES: PERRLA and EOMI. ENT: Nares clear, no rhinorrhea or epistaxis. Mucous membranes moist. Oropharynx without tonsillar hypertrophy exudate or other lesions. NECK: Supple. No adenopathy or masses. CHEST: Mildly increased work of breathing. Saturating 95% room air. Bilateral wheezes heard in expiration, lung sounds are tight. Speaking in full sentences HEART: Regular rate and rhythm. No murmur heard. Normal peripheral pulses. ABDOMEN: Soft, nontender, nondistended, normal active bowel sounds. MSK: Normal range of motion. No edema. SKIN: Warm, dry, no rash. NEURO: Alert and oriented x4. No focal deficits. PSYCH: Normal mood and affect. Course Vital Signs Vital signs: Vital Signs Temperature 98.9 F 07/24/24 17:46 Pulse Rate 104 H 07/24/24 17:46 Respiratory Rate 20 07/24/24 17:46 Blood Pressure 126/72 07/24/24 17:46 Pulse Oximetry 97 07/24/24 17:46 Temperature 98.9 F 07/24/24 17:46 Pulse Rate 94 07/24/24 21:51 Respiratory Rate 21 H 07/24/24 21:51 Blood Pressure 106/75 07/24/24 21:51 Pulse Oximetry 93 07/24/24 21:51 Oxygen Delivery Room Air 07/24/24 18:28 MDM - SOB/Dyspnea MDM Narrative Medical decision making narrative: This is a 51-year-old female who presents to the ED for COPD exacerbation. Vitals are normal. Exam remarkable for the above with diffuse wheezing, however no overt respiratory distress. Saturating well on room air. Viral swabs show positive flu test. CBC shows mild leukopenia as expected with viral illness. CMP unremarkable. Chest x-ray shows no acute findings. EKG shows sinus rhythm with no acute ischemia. Patient was given Solu-Medrol, breathing treatment and magnesium here with good relief of symptoms. Due to reported increased productive cough with COPD, will prescribe antibiotics for COPD exacerbation as well as Medrol Dosepak Patient will be discharged in stable condition. Supportive measures discussed and return precautions given. Patient is understanding and agreeable with plan for discharge with PCP follow-up. Lab Data 07/24/24 18:37 07/24/24 18:37 Labs: Lab Results 07/24/24 07/24/24 Range/Units 17:49 18:37 WBC 3.0 L (4.5-10.0) K/mm3 RBC 4.25 (4.2-5.4) M/mm3 Hgb 14.2 (12.0-15.0) g/dL Hct 42.8 (37.0-47.0) % MCV 100.7 H (80-100) fl MCH 33.4 (26-34) pg MCHC 33.2 (32-36) g/dl RDW 13.2 (11.5-14.5) % Plt Count 209 (150-375) k/mm3 MPV 9.4 (7.4-10.4) fl Immature Gran % (Auto) 0.3 (0-0.5) % Neut % (Auto) 65.4 (45.5-73.1) % Lymph % (Auto) 24.4 (18.3-44.2) % [place] % (Auto) 7.6 (2.6-8.5) % Eos % (Auto) 1.0 (0-4.4) % Baso % (Auto) 1.3 H (0.2-1.2) % Lymph # (Auto) 0.74 L (0.9-3.2) K/mm3 [place] # (Auto) 0.2 (0.1-0.6) K/mm3 Eos # (Auto) 0.0 (0-0.3) K/mm3 Baso # (Auto) 0.0 (0.0-0.1) K/mm3 Abs Immat Gran (auto) 0.01 (0.00-0.031) K/mm3 Absolute Neuts (auto) 2.0 (1.3-6.7) K/mm3 Absolute Nucleated RBC 0.000 (0.0-0.012) K/mm3 Nucleated RBC % 0.0 (0.0-0.2) % Sodium 138 (137-145) mmol/L Potassium 4.3 (3.4-5.0) mmol/L Chloride 103 (98-107) mmol/L Carbon Dioxide 26 (22-30) mmol/L Anion Gap 9 (4-12) mmol/L BUN 12 (7-17) mg/dL Creatinine 0.57 L (0.7-1.0) mg/dL Estim Creat Clear Calc 75 ml/min Estimated GFR > 60 (59 - ) Glucose 100 (65-110) mg/dL Calcium 8.7 (8.4-10.2) mg/dL Magnesium 1.7 (1.6-2.3) mg/dL Total Bilirubin 0.3 (0.2-1.3) mg/dL AST 40 H (14-36) U/L ALT 24 (6-35) U/L Alkaline Phosphatase 86 (38-126) U/L Total Protein 7.0 (6.3-8.2) g/dL Albumin 4.1 (3.5-5.1) g/dL Influenza A (RT-PCR) Positive A (Negative) Influenza B (RT-PCR) Negative (Negative) RSV (RT-PCR) Negative (Negative) SARS-CoV-2 RNA (RT-PCR) Negative (Negative) Discharge Plan Discharge Clinical Impression: COPD (chronic obstructive pulmonary disease), Influenza A Patient Disposition: Home, Self-Care Condition: Stable Instructions: Antibiotic Form, Influenza (ED) Additional Instructions: Your exam and workup today are showing your positive for influenza type A. This is probably causing COPD exacerbation. He will be covered with antibiotics to prevent pneumonia. Also prescribed Medrol Dosepak for steroids. Follow-up closely with PCP on this issue. If you have any new or worsening symptoms please return to the ER for further evaluation. Patient Language: Welsh Prescriptions: New methylprednisolone [Medrol ([place])] 4 mg tablets,dose pack See Rx Instructions .ROUTE .COMPLEX Qty: 21 0RF Rx Instructions: for 6 days doxycycline hyclate 100 mg capsule 100 mg PO BID 7 Days Qty: 14 0RF No Action estradiol-norethindrone acet 1-0.5 mg tablet 1 tablet PO DAILY zolpidem 10 mg tablet 10 mg PO .hs cyanocobalamin (vitamin B-12) 1,000 mcg tablet 1,000 mcg PO DAILY Qty: 90 3RF budesonide-formoterol [Symbicort] 160-4.5 mcg/actuation HFA aerosol inhaler 2 puff inhalation Q12H Qty: 10.2 3RF Rx Instructions: Rinse mouth and spit after each use fluticasone propionate [Flonase Allergy Relief] 50 mcg/actuation spray,suspension 2 spray intranasal DAILY Qty: 16 3RF Rx Instructions: administer into each nostril diclofenac sodium 75 mg tablet,delayed release (DR/EC) 75 mg PO BID Qty: 60 0RF albuterol sulfate 90 mcg/actuation HFA aerosol inhaler 2 puff inhalation Q6H PRN (Reason: shortness of breath or wheezing) Qty: 18 3RF benzonatate 200 mg capsule 200 mg PO TID PRN (Reason: cough) Qty: 30 0RF Follow-up/Referrals: Sami Stern DO [Primary Care Provider] - Stand Alone Forms: Work/School Release IP Time of Disposition: 21:18
[2024-07-24 18:48] LABS: Basophils Percent Auto 1.3 % (0.2-1.2); Hematocrit 42.8 % (37.0-47.0); Hemoglobin 14.2 g/dL (12.0-15.0); Immature Granulocyte Absolute 0.01 K/mm3 (0.00-0.031); Immature Granulocyte Percent A 0.3 % (0-0.5); Lymphocytes Absolute Auto 0.74 K/mm3 (0.9-3.2); Lymphocytes Percent Auto 24.4 % (18.3-44.2); Mean Corpuscular HGB Conc 33.2 g/dl (32-36); Mean Corpuscular Hemoglobin 33.4 pg (26-34); Mean Corpuscular Volume 100.7 fl (80-100); Mean Platelet Volume 9.4 fl (7.4-10.4); Monocytes Absolute Auto 0.2 K/mm3 (0.1-0.6); Monocytes Percent Auto 7.6 % (2.6-8.5); Neutrophils Percent Auto 65.4 % (45.5-73.1); Platelet Count Result 209 k/mm3 (150-375); Red Blood Count 4.25 M/mm3 (4.2-5.4); Red Cell Distribution Width 13.2 % (11.5-14.5)
[2024-07-24 18:59] LABS: Alanine Aminotransferase 24 U/L (6-35); Albumin Level 4.1 g/dL (3.5-5.1); Alkaline Phosphatase 86 U/L (38-126); Anion Gap 9 mmol/L (4-12); Aspartate Amino Transferase 40 U/L (14-36); Bilirubin,Total 0.3 mg/dL (0.2-1.3); Blood Urea Nitrogen 12 mg/dL (7-17); Calcium 8.7 mg/dL (8.4-10.2); Carbon Dioxide 26 mmol/L (22-30); Chloride 103 mmol/L (98-107); Estimated CRCL calculation 75 ml/min; Estimated Glomerular Filt Rate > 60; Glucose 100 mg/dL (65-110); Potassium 4.3 mmol/L (3.4-5.0); Sodium 138 mmol/L (137-145)
[2024-07-24] MEDS: methylPREDNISolone SOD SUCC 125 MG VIAL IV PUSH (19:00)
[2024-07-24] MEDS: MAGNESIUM SULF 1 GM/D5W 100 ML 1 GM/100 ML BAG IVPB (19:00)
[2024-07-24 19:03] LABS: Magnesium 1.7 mg/dL (1.6-2.3)
[2024-07-24] MEDS: IPRATROPIUM BR 0.02% INH SOLN 0.5 MG/2.5 ML VIAL 1 MG INHALATION (19:16)
[2024-07-24] MEDS: ALBUTEROL SULFATE NEB 2.5 MG/3 ML INH 10 MG INHALATION (19:16)
[2024-07-24] MEDS: ACETAMINOPHEN 500 MG TABLET 1000 MG PO (19:17)
--- NOTE | 2024-07-24 20:39 | PC.NURSE ---
TRINH Pride verbally states not need to draw blood cultures prior to starting IV anitbiotics.
[2024-07-24] MEDS: AZITHROMYCIN 500 MG/NS 250 ML 500 MG/250 ML BAG 250 MG IVPB (20:42)
== END 2024-07-24 21:52 | disposition home or self-care (01) ==
PROVIDERS: Emergency Medicine; Emergency Provider Physician Assistant; PCP Internal Medicine
DX: J10.1 Influenza due to other identified influenza virus with other respiratory manifestations (principal); J44.1 Chronic obstructive pulmonary disease with (acute) exacerbation; Z20.822 Contact with and (suspected) exposure to COVID-19; Z87.891 Personal history of nicotine dependence; Z79.899 Other long term (current) drug therapy
CPT/HCPCS: 36415; 71046; 80053; 83735; 85025; 87637; 93005; 94640; 96365; 96367; 96368; 96375; 99284; A9270; J0456; J0696; J2919; J3475

== ENCOUNTER 2024-07-27 18:20 | Inpatient (IN) | payer OTHER, SELFPAY ==
[2024-07-27] VITALS (12 sets, daily range): BP systolic 107–162; BP diastolic 59–90; PULSE 57–110; RESP 15–20; TEMP 36.2–36.7; O2SAT 88–100; BMI 25.2
--- NOTE | ~2024-07-27 | CT_ITS ---
EXAMINATION: CT diagnostic chest wo con DATE: 07/27/2024 19:40 INDICATION: Eval left lateral rib fracture, hypoxic/flu TECHNIQUE: Computed tomography (CT) of the chest was performed with 100 mL Omnipaque-350 intravenous contrast. Automated exposure control and iterative reconstruction technique were employed. The dose-l ength product was 218.96 mGy-cm. COMPARISON: 07/09/2024. FINDINGS: CHEST: Thoracic aorta: No significant dilation. Mild atherosclerotic calcification. Lung parenchyma and airways: Emphysematous change. Mild apical pleural scarring and apical blebs. Sca ttered sub-6 mm pulmonary nodules. Thoracic inlet, axillae and chest wall: No thyroid or soft tissue mass. No axillary lymphadenopathy. Mediastinum: No mass or lymphadenopathy. Heart and pericardium: Normal heart size. No pericardial effusion. Coronary artery calcifications: Mild. Pleura: No effusion or mass. Upper abdomen: Stable left pelviectasis/pelvic cyst. Thoracic bones: No acute osseous finding in the chest. Thoracic scoliosis. Uncomplicated appearing th oracic stabilization genesis. IMPRESSION: No acute thoracic process detected. Specifically, no left rib fractures identified. Multiple sub-6 mm pulmonary nodules, prior recommendation of follow-up CT lung screening is unchanged Reviewed, dictated and finalized at location K. TENSION TESTER IMPRESSION: No acute thoracic process detected. Specifically, no left rib fractures identif ied. Multiple sub-6 mm pulmonary nodules, prior recommendation of follow-up CT lung screening is unchanged
--- OUTSIDE RECORDS SUMMARY | 2024-07-27 18:23 | XMS_ITS | Clinical Summary ---
Author Organization [facility] [employer] Address [address] [place] [address] Care Team Providers Care Asphalt Tamper Name Role Phone Prince Hernandez DO Primary Care Provider [phone] Source Comments [facility] [employer],non-owned Affiliates and Associated Physician Practices is amultiple site organization consisting of ambulatory clinics and hospital sitesin [place], [place], [place] and [place]. This disclosure is being madepursuant to the Care Everywhere program and may not contain all information available regarding this patient. Last updated 18.[facility] [employer] Allergies No known active allergies Medications * [...] age to complete this topic Care Teams Asphalt Tamper Relationship Specialty Start Date End Date Prince Hernandez DO [address] [facility] [address] [place] [address] PCP - General 03/24/19
--- OUTSIDE RECORDS SUMMARY | 2024-07-27 18:23 | XMS_ITS | Referral Summary ---
Author Organization [facility] Address [address] [place] [address] Care Team Providers Care Commercial Fisher Name Role Phone David Princenilson High DO Primary Care Provider [phone] Source Comments [facility],non-owned Affiliates and Associated Physician Practices is amultiple site organization consisting of ambulatory clinics and hospital sitesin [place], [place], [place]. This disclosure is being madepursuant to the Care Everywhere program and may not contain all information available regarding this patient. Last updated 18.[facility] Allergies No known active allergies Medications * [...] of Treatment Not on file Care Teams Commercial Fisher Relationship Specialty Start Date End Date Prince Hernandez DO [address] [facility] [address] [place] [address] PCP - General 03/24/19
--- OUTSIDE RECORDS SUMMARY | 2024-07-27 18:23 | XMS_ITS | Patient Health Summary ---
Author Organization [facility] [employer] Address [address] [place] [address] Care Team Providers Care Supervisor Customer Services Name Role Phone Prince Hernandez DO Primary Care Provider [phone] Note from [facility],non-owned Affiliates and Associated Physician Practices is amultiple site organization consisting of ambulatory clinics and hospital sitesin [place], [place], [place] and [place]. This disclosure is being madepursuant to the Care Everywhere program and may not contain all information available regarding this patient. Last updated 18.[facility] Allergies No known active allergies Medications * [...] Sexual Orientation Not on file Care Teams Supervisor Customer Services Relationship Specialty Start Date End Date Prince Hernandez DO [address] [facility] [address] [place], [place] [id number] PCP - General 03/24/19
--- NOTE | 2024-07-27 19:04 | ECG_ITS ---
Test Date: 2024-07-27 19:53:48 Measurements Intervals [place] Rate: 48 P: 74 MI: 170 QRS: 61 QRSD: 95 T: 65 QT: 437 QTc: 394 Interpretive Statements SINUS BRADYCARDIA INCOMPLETE RIGHT BUNDLE BRANCH BLOCK PEAKED T WAVES- CONSIDER HYPERKALEMIA BASELINE ARTIFACT- I, II, III, AVR, AVL, AVF, V1-V3 ABNORMAL ECG Compared to ECG 07/24/2024 19:19:44 HEART RATE HAS DECREASED PEAKED T WAVES NOW PRESENT Electronically Signed On 07-28-2024 07:02:30 [employer]EARCH ASSOCIATE QUALITY CONTROL QC by Dmitry Barton D.O.
--- OUTSIDE RECORDS SUMMARY | 2024-07-27 19:09 | XMS_ITS | Referral Summary ---
Author Organization [facility] Address [address] [facility] [place] [address] Care Team Providers Care Foreign Student Adviser Teacher Name Role Phone David Princenilson High DO Primary Care Provider [phone] Source Comments [facility],non-owned Affiliates and Associated Physician Practices is amultiple site organization consisting of ambulatory clinics and hospital sitesin [place], [place], [place] and [place]. This disclosure is being madepursuant to the Care Everywhere program and may not contain all information available regarding this patient. Last updated 18.[facility] Allergies No known active allergies Medications * [...] of Treatment Not on file Care Teams Foreign Student Adviser Teacher Relationship Specialty Start Date End Date Prince Hernandez DO [address] [facility] [address] [place] [address] PCP - General 03/24/19
--- OUTSIDE RECORDS SUMMARY | 2024-07-27 19:09 | XMS_ITS | Clinical Summary ---
Author Organization [facility] [employer] [employer] Address [address] [address] Care Team Providers Care Electrotyper Helper Name Role Phone Prince Hernandez DO Primary Care Provider [phone] Source Comments [facility] [employer],non-owned Affiliates and Associated Physician Practices is amultiple site organization consisting of ambulatory clinics and hospital sitesin [place], [place], [place] and [place]. This disclosure is being madepursuant to the Care Everywhere program and may not contain all information available regarding this patient. Last updated 18.[facility] [employer] Allergies No known active allergies Medications [...] age to complete this topic Care Teams Electrotyper Helper Relationship Specialty Start Date End Date Prince Hernandez DO [address] [facility] [address] [place] [address] PCP - General 03/24/19
--- OUTSIDE RECORDS SUMMARY | 2024-07-27 19:09 | XMS_ITS | Patient Health Summary ---
Author Organization [facility] Address [address] [facility] [place] [address] Care Team Providers Care Ostrich Farm Worker Name Role Phone Prince Hernandez DO Primary Care Provider [phone] Note from [facility],non-owned Affiliates and Associated Physician Practices is amultiple site organization consisting of ambulatory clinics and hospital sitesin [place], [place], [place] and [place]. This disclosure is being madepursuant to the Care Everywhere program and may not contain all information available regarding this patient. Last updated 18.[facility] Allergies No known active allergies Medications * [...] Sexual Orientation Not on file Care Teams Ostrich Farm Worker Relationship Specialty Start Date End Date Prince Hernandez DO [address] [facility] [address] [place], [place] [id number] PCP - General 03/24/19
--- NOTE | 2024-07-27 19:18 | ED_ITS ---
HPI - General Adult General Chief complaint: Upper Respiratory Infection Stated complaint: flu+, hard time catching breath Time Seen by Provider: 07/27/24 18:49 History of Present Illness HPI narrative: 59-year-old female with history of COPD presenting with difficulty breathing. Patient has been having flu-like symptoms for the last 8 days. She was diagnosed with flu 3 days ago and discharged with course of steroids and breathing treatments. However since then she feels she has not been improving. Today she became weak dizzy and lightheaded when she stood up. She also has developed significant pain on the left side of her chest with coughing. She has had decreased oral intake throughout day. She also feels more short of breath than usual. No fevers, nausea vomiting diarrhea chest pain abdominal pain or urinary symptoms. Related Data Home Medications ?Medication ?Instructions ?Recorded ?Confirmed ?Last Taken ?Type estradiol-norethindrone acet 1 1 tablet PO DAILY 09/28/19 05/26/24 Unknown History mg-0.5 mg tablet zolpidem 10 mg tablet 12.5 mg PO .hs 09/28/19 07/27/24 Unknown History Allergies Allergy/AdvReac Type Severity Reaction Status Date / Time No Known Allergies Allergy Unknown Verified 07/24/24 18:30 [facility] Past Medical History Medical History COPD (chronic obstructive pulmonary disease) his respiratory failure requiring intubation 2015 Surgical History Surgical History History of back surgery (~1981) Family History Family History Father Patient's father is in good health Sibling Patient's sister is in good health Patient's brother is in good health Mother Family history of lung cancer, Onset Age: 61 Social History Social History Smoking status: Former smoker Second hand tobacco smoke exposure: No Smoking end date: 04/08/16 Additional smoking assessment comments: 1.5 PPD x 20 years prior Alcohol intake: current Substance use type: does not use Do You Feel Safe in your Home?: Yes Lack of Transportation: No Lack of Food: Never True Current Housing: I Have Housing Concerned About Future Housing: No Difficulty Paying Gas/Electric Bills: No Difficulty Paying for Meds: No Currently Unemployed: No Education: High School Diploma/GED Difficulty w/ Childcare or Family Care: No Living arrangements: with family Spiritual care concerns: No Exam 2 Narrative: APPEARANCE: No apparent distress. Head: atraumatic. EYES: EOMI, NOSE: Atraumatic NECK: Trachea midline RESPIRATORY: Speaking in full sentences, wheezing in all garcía CARDIOVASCULAR: RRR, no peripheral edema ABDOMINAL: Non-distended soft nontender MUSCULOSKELETAl: No obvious deformities NEURO: Alert. Moving 4/4 extremities SKIN:: Warm, dry. Normal color PSYCHIATRIC: Normal affect Course Vital Signs Vital signs: Vital Signs Temperature 97.1 F L 07/27/24 18:23 Pulse Rate 78 07/27/24 18:23 Respiratory Rate 20 07/27/24 18:23 Blood Pressure 149/82 H 07/27/24 18:23 Pulse Oximetry 90 07/27/24 18:23 Oxygen Delivery Room Air 07/27/24 18:23 Temperature 97.1 F L 07/27/24 18:23 Pulse Rate 84 07/27/24 21:41 Respiratory Rate 19 07/27/24 21:41 Blood Pressure 150/65 H 07/27/24 21:41 Pulse Oximetry 92 07/27/24 21:45 Oxygen Delivery Nasal Cannula 07/27/24 21:45 Oxygen Flow Rate 3 07/27/24 21:45 Medical Decision Making [facility] Narrative Medical decision making narrative: -Course: 51-year-old female with COPD and influenza present breathing, left- sided rib pain and weakness. CT did not show any infiltrates/pneumonia or any rib fractures. Patient received COPD treatment with some improvement in her symptoms, however she is still hypoxic. Patient has been placed on 3 L nasal cannula. Patient will be admitted the hospital for further management of her hypoxic respiratory failure secondary to influenza A. Started on tamiflu. -DDX includes but is not limited to: Rib fracture, viral pneumonia, secondary pneumonia, COPD exacerbation Vital Signs Vital Signs: Vital Signs Temperature 97.1 F L 07/27/24 18:23 Pulse Rate 78 07/27/24 18:23 Respiratory Rate 20 07/27/24 18:23 Blood Pressure 149/82 H 07/27/24 18:23 Pulse Oximetry 90 07/27/24 18:23 Oxygen Delivery Room Air 07/27/24 18:23 Temperature 97.1 F L 07/27/24 18:23 Pulse Rate 84 07/27/24 21:41 Respiratory Rate 19 07/27/24 21:41 Blood Pressure 150/65 H 07/27/24 21:41 Pulse Oximetry 92 07/27/24 21:45 Oxygen Delivery Nasal Cannula 07/27/24 21:45 Oxygen Flow Rate 3 07/27/24 21:45 Lab Data 07/27/24 19:21 07/27/24 19:21 Labs: Lab Results 07/27/24 Range/Units 19:21 WBC 9.3 (4.5-10.0) K/mm3 RBC 4.27 (4.2-5.4) M/mm3 Hgb 14.3 (12.0-15.0) g/dL Hct 42.3 (37.0-47.0) % MCV 99.1 (80-100) fl MCH 33.5 (26-34) pg MCHC 33.8 (32-36) g/dl RDW 12.9 (11.5-14.5) % Plt Count 270 (150-375) k/mm3 MPV 9.4 (7.4-10.4) fl Immature Gran % (Auto) 0.2 (0-0.5) % Neut % (Auto) 77.5 H (45.5-73.1) % Lymph % (Auto) 17.2 L (18.3-44.2) % [place] % (Auto) 4.8 (2.6-8.5) % Eos % (Auto) 0.1 (0-4.4) % Baso % (Auto) 0.2 (0.2-1.2) % Lymph # (Auto) 1.60 (0.9-3.2) K/mm3 [place] # (Auto) 0.5 (0.1-0.6) K/mm3 Eos # (Auto) 0.0 (0-0.3) K/mm3 Baso # (Auto) 0.0 (0.0-0.1) K/mm3 Abs Immat Gran (auto) 0.02 (0.00-0.031) K/mm3 Absolute Neuts (auto) 7.2 H (1.3-6.7) K/mm3 Absolute Nucleated RBC 0.000 (0.0-0.012) K/mm3 Nucleated RBC % 0.0 (0.0-0.2) % Sodium 137 (137-145) mmol/L Potassium 4.1 (3.4-5.0) mmol/L Chloride 102 (98-107) mmol/L Carbon Dioxide 26 (22-30) mmol/L Anion Gap 9 (4-12) mmol/L BUN 17 (7-17) mg/dL Creatinine 0.43 L (0.7-1.0) mg/dL Estim Creat Clear Calc 97 ml/min Estimated GFR > 60 (59 - ) Glucose 116 H (65-110) mg/dL Lactic Acid 0.9 (0.7-2.0) mmol/L Calcium 9.0 (8.4-10.2) mg/dL Magnesium 2.1 (1.6-2.3) mg/dL Total Bilirubin 0.6 (0.2-1.3) mg/dL AST 88 H (14-36) U/L ALT 79 H (6-35) U/L Alkaline Phosphatase 71 (38-126) U/L Total Protein 8.0 (6.3-8.2) g/dL Albumin 4.1 (3.5-5.1) g/dL Influenza A (RT-PCR) Positive A (Negative) Influenza B (RT-PCR) Negative (Negative) RSV (RT-PCR) Negative (Negative) SARS-CoV-2 RNA (RT-PCR) Negative (Negative) ABG Data ABG results: 07/27/24 19:15 Puncture Site Left radial ABG pH 7.468 H ABG pCO2 36.5 ABG pO2 83.5 ABG PO2/FiO2 Ratio 2.98 ABG HCO3 25.8 ABG O2 Saturation 96.8 ABG O2 Content 19.5 ABG Base Excess 2.4 A-a Gradient 73.1 Oxyhemoglobin 95.0 Total Hemoglobin 14.6 O2 Delivery Device Nasal cannula O2 Liters/Min 2.0 FiO2 28 Discharge Plan Discharge Clinical Impression: Flu, Hypoxic respiratory failure Patient Disposition: Still a Patient Condition: Stable Patient Language: Citizen Of [place] Prescriptions: No Action estradiol-norethindrone acet 1-0.5 mg tablet 1 tablet PO DAILY zolpidem 10 mg tablet 10 mg PO .hs cyanocobalamin (vitamin B-12) 1,000 mcg tablet 1,000 mcg PO DAILY Qty: 90 3RF budesonide-formoterol [Symbicort] 160-4.5 mcg/actuation HFA aerosol inhaler 2 puff inhalation Q12H Qty: 10.2 3RF Rx Instructions: Rinse mouth and spit after each use methylprednisolone [Medrol ([place])] 4 mg tablets,dose pack See Rx Instructions .ROUTE .COMPLEX Qty: 21 0RF Rx Instructions: for 6 days doxycycline hyclate 100 mg capsule 100 mg PO BID 7 Days Qty: 14 0RF fluticasone propionate [Flonase Allergy Relief] 50 mcg/actuation spray,suspension 2 spray intranasal DAILY Qty: 16 3RF Rx Instructions: administer into each nostril diclofenac sodium 75 mg tablet,delayed release (DR/EC) 75 mg PO BID Qty: 60 0RF albuterol sulfate 90 mcg/actuation HFA aerosol inhaler 2 puff inhalation Q6H PRN (Reason: shortness of breath or wheezing) Qty: 18 3RF benzonatate 200 mg capsule 200 mg PO TID PRN (Reason: cough) Qty: 30 0RF Follow-up/Referrals: Sami Stern DO [Primary Care Provider] -
[2024-07-27 19:27] LABS: Basophils Percent Auto 0.2 % (0.2-1.2); Eosinophils Percent Auto 0.1 % (0-4.4); Hematocrit 42.3 % (37.0-47.0); Hemoglobin 14.3 g/dL (12.0-15.0); Immature Granulocyte Absolute 0.02 K/mm3 (0.00-0.031); Immature Granulocyte Percent A 0.2 % (0-0.5); Lymphocytes Percent Auto 17.2 % (18.3-44.2); Mean Corpuscular HGB Conc 33.8 g/dl (32-36); Mean Corpuscular Hemoglobin 33.5 pg (26-34); Mean Corpuscular Volume 99.1 fl (80-100); Mean Platelet Volume 9.4 fl (7.4-10.4); Monocytes Absolute Auto 0.5 K/mm3 (0.1-0.6); Monocytes Percent Auto 4.8 % (2.6-8.5); Neutrophils Absolute Auto 7.2 K/mm3 (1.3-6.7); Neutrophils Percent Auto 77.5 % (45.5-73.1); Platelet Count Result 270 k/mm3 (150-375); Red Blood Count 4.27 M/mm3 (4.2-5.4); Red Cell Distribution Width 12.9 % (11.5-14.5); White Blood Count 9.3 K/mm3 (4.5-10.0)
[2024-07-27 19:27] LABS: Alveolar/Arterial O2 Gradient 73.1 mmHg; Base Excess ABG 2.4 mEq/l (+/-2.0); Fractional Inspired Oxygen 28 %; HCO3 ABG 25.8 mEq/l (22.0-26.0); Oxygen Content ABG 19.5 %vol (16.0-22.0); Oxygen Saturation ABG 96.8 % (95.0-100.0); PCO2 ABG 36.5 mmHg (35.0-45.0); PO2 ABG 83.5 mmHg (80.0-100.0); PO2 FiO2 Ratio Arterial Blood 2.98 %; Total Hemoglobin 14.6 g/dL (12.0-18.0); pH ABG 7.468 (7.350-7.450)
[2024-07-27 19:29] LABS: Device NASAL CANNULA; Modified Allen's Test Pass; Site Drawn LEFT RADIAL
[2024-07-27 19:36] LABS: Lactic Acid Reflex 0.9 mmol/L (0.7-2.0)
[2024-07-27 19:37] LABS: Alanine Aminotransferase 79 U/L (6-35); Albumin Level 4.1 g/dL (3.5-5.1); Alkaline Phosphatase 71 U/L (38-126); Anion Gap 9 mmol/L (4-12); Aspartate Amino Transferase 88 U/L (14-36); Bilirubin,Total 0.6 mg/dL (0.2-1.3); Blood Urea Nitrogen 17 mg/dL (7-17); Carbon Dioxide 26 mmol/L (22-30); Chloride 102 mmol/L (98-107); Estimated CRCL calculation 97 ml/min; Estimated Glomerular Filt Rate > 60; Glucose 116 mg/dL (65-110); Magnesium 2.1 mg/dL (1.6-2.3); Potassium 4.1 mmol/L (3.4-5.0); Sodium 137 mmol/L (137-145)
[2024-07-27] MEDS: KETOROLAC 15 MG/ML VIAL (*BKC) IV PUSH (19:46)
[2024-07-27] MEDS: methylPREDNISolone SOD SUCC 125 MG VIAL IV PUSH (19:46)
[2024-07-27] MEDS: MAGNESIUM SULF 2 GM/WATER 50ML 2 GM/50 ML BAG IVPB (19:46)
[2024-07-27] MEDS: SODIUM CHLORIDE 0.9% IV 1,000 ML 999 ML IV CONT (19:47)
[2024-07-27 20:04] LABS: Influenza A QL RT-PCR Positive (Negative); Influenza B QL RT-PCR Negative (Negative); RSV RNA, RT-PCR Negative (Negative); SARS-CoV-2 RNA PCR Negative (Negative)
[2024-07-27] MEDS: IPRATROPIUM 0.5 MG/ALBUTEROL SULFATE 2.5 MG AMPUL.NEB 3 ML 12 ML INHALATION (20:15)
[2024-07-27] MEDS: OSELTAMIVIR PHOSPHATE 75 MG CAPSULE PO (22:53)
--- NOTE | 2024-07-27 23:30 | ADMGEN ---
This patient, Poornima Casas, was admitted to Medical Room 247-. Patient/family oriented to hospital policies and general routines including ID bracelet, bed and alarms, visiting hours, pain management, procedures, bathroom and other care routines, personal items, smoking policy, room service/diet, and visiting hours. Information on how to activate the Rapid Response Team has been discussed. Patient/Family are encouraged to report perceived risks to care and to ask questions if they do not understand what they are told or what they should do.
[2024-07-28] VITALS (12 sets, daily range): BP systolic 140–158; BP diastolic 66–70; PULSE 62–70; RESP 16–20; TEMP 36.4–36.7; O2SAT 90–95
[2024-07-28] MEDS: methylPREDNISolone SOD SUCC 125 MG VIAL 60 MG IV PUSH ×4 (00:06→17:17)
--- NOTE | 2024-07-28 01:41 | PM.IMHP ---
H&P: HPI History of Present Illness Date/Time: 07/28/24 01:41 Chief Complaint: Shortness of breath Narrative: 59-year-old female with a past medical history of COPD and recent diagnosis of influenza a who presented to the ER with worsening shortness of breath and new rattling in her chest. She reported that she has been having symptoms of increasing cough, shortness of breath and fever. Her last fever was on the when she came into the ER. She was subsequently diagnosed with influenza a at that time and started on methylprednisolone and doxycycline. She was discharged home. However she is concerned that her influenza as turned into pneumonia because she was becoming so short of breath that she felt as if she may pass out due to feeling lightheaded and dizzy. She had developed significant pain in her left lateral ribcage from coughing. She was concerned that she may have broken a rib. She has had decreased oral intake over the last couple of days. She denies any nausea or vomiting. Her cough is but not productive. The She smoked 1-1.5 packs of cigarettes per day for 35 years but quit smoking in 2016. She quit smoking at that time because she was diagnosed with pneumonia and required intubation and a prolonged hospital stay at which time she also suffered from a DVT due to immobility. Review of Systems Review of Systems: 12 systems were reviewed with pertinent positives and negatives per HPI. Except as documented in the HPI, all other systems were reviewed and are negative. [facility] Past Medical History Medical History (Updated 07/28/24 @ 07:14 by Teresa Duenas DO) Former smoker Quit 2016 DVT (deep venous thrombosis) Due to prolonged immobility from hospitalization Psoriasis COPD (chronic obstructive pulmonary disease) respiratory failure requiring intubation 2016 Surgical History Surgical History (Updated 07/28/24 @ 07:09 by Teresa Duenas DO) History of bladder suspension procedure History of tonsillectomy and adenoidectomy History of total abdominal hysterectomy and bilateral salpingo-oophorectomy History of back surgery (~1981) Scoliosis Family History Family History Father Patient's father is in good health Sibling Patient's sister is in good health Patient's brother is in good health Mother Family history of lung cancer, Onset Age: 61 Social History Social History (Updated 07/28/24 @ 07:10 by Teresa Duenas DO) Social History: Patient lives at home with her of 38 years. They raised 2 sons. She had a 1.5 pack per day smoking history but quit smoking in 2016. She drinks alcohol about once a month in moderation. She denies any history of illicit substance use. Code status: Full code Surrogate decision maker: Smoking packs per day: 1.5 Smoking cigarettes per day: 30.0 Years smoked: 30 Smoking pack-years: 45.00 Smoking status: Former smoker Tobacco type: cigarettes Second hand tobacco smoke exposure: No Smoking end date: 04/08/16 Additional smoking assessment comments: 1.5 PPD x 30 years Alcohol intake: former Substance use: never Substance use type: does not use Do You Feel Safe in your Home?: Yes Lack of Transportation: No Lack of Food: Never True Current Housing: I Have Housing Concerned About Future Housing: No Difficulty Paying Gas/Electric Bills: No Difficulty Paying for Meds: No Currently Unemployed: No Education: High School Diploma/GED Difficulty w/ Childcare or Family Care: No Living arrangements: with family Spiritual care concerns: No Meds Home Medications and Allergies Home Medications ?Medication ?Instructions ?Recorded ?Confirmed ?Type budesonide-formoterol HFA 160 2 puff inhalation Q12H #10.2 grams 03/19/24 07/27/24 Rx mcg-4.5 mcg/actuation aerosol inhaler (Symbicort) albuterol sulfate 90 mcg/actuation 2 puff inhalation Q6H PRN 05/07/24 07/27/24 Rx aerosol inhaler shortness of breath or wheezing #18 grams benzonatate 200 mg capsule 200 mg PO TID PRN cough #30 caps 07/23/24 07/27/24 Rx doxycycline hyclate 100 mg capsule 100 mg PO BID 7 days #14 caps 07/24/24 07/27/24 Rx methylprednisolone 4 mg tablets in See Rx Instructions PO .COMPLEX 07/24/24 07/27/24 Rx a dose pack (Medrol ([place])) #21 ea estradiol 2 mg tablet 2 mg PO DAILY 07/27/24 07/27/24 History Allergies Allergy/AdvReac Type Severity Reaction Status Date / Time No Known Allergies Allergy Unknown Verified 07/24/24 18:30 Vital Signs Vital Signs - 24 hr 07/27/24 18:23 07/27/24 18:37 07/27/24 19:06 Temperature 97.1 F L Pulse Rate 78 Respiratory Rate 20 Blood Pressure 149/82 H Pulse Oximetry 90 94 Oxygen Delivery Room Air Nasal Cannula Room Air Oxygen Flow Rate 2 07/27/24 20:15 07/27/24 20:15 07/27/24 20:56 Temperature Pulse Rate 57 L 60 70 Respiratory Rate 20 16 19 Blood Pressure 143/67 H 107/85 Pulse Oximetry 97 100 Oxygen Delivery Oxygen Flow Rate 07/27/24 21:10 07/27/24 21:39 07/27/24 21:41 Temperature Pulse Rate 84 84 Respiratory Rate 18 19 Blood Pressure 150/65 H Pulse Oximetry 88 L 89 L Oxygen Delivery Room Air Oxygen Flow Rate 07/27/24 21:45 07/27/24 22:58 07/27/24 22:59 Temperature Pulse Rate 110 H Respiratory Rate 19 Blood Pressure 141/59 H Pulse Oximetry 92 96 96 Oxygen Delivery Nasal Cannula Nasal Cannula Oxygen Flow Rate 3 2 07/27/24 23:09 07/27/24 23:33 07/28/24 00:21 Temperature 98.1 F Pulse Rate 79 72 Respiratory Rate 15 20 Blood Pressure 162/86 H 126/90 Pulse Oximetry 95 95 95 Oxygen Delivery Nasal Cannula Oxygen Flow Rate 2 Exam Narrative: Weight 64.7 kg BMI 25.3 Const: Other: No acute distress, well-developed well-nourished HENMT: Other: Mucous membranes are tacky, no oral pharyngeal erythema, upper dentures in place, fair dentition lower jaw Eyes: Other: Pupils are equal and reactive, no scleral icterus, no conjunctival pallor Cardio: Other: Regular rate, regular rhythm, 2+ bilateral radial pedal pulses, no murmur GI: Other: Soft, positive bowel sounds Skin: Other: Mild pallor, non jaundice Neuro: Other: Alert oriented, speech is clear, no facial asymmetry Extrem: Other: No clubbing, cyanosis or edema, moves all extremities equally Psych: Other: Appropriate mood and affect, pleasant and cooperative, judgment and insight intact H&P: Results Labs Labs: Laboratory Tests 07/27/24 19:21 07/27/24 19:21 07/27/24 07/27/24 19:15 19:21 WBC 9.3 RBC 4.27 Hgb 14.3 Hct 42.3 MCV 99.1 MCH 33.5 MCHC 33.8 RDW 12.9 Plt Count 270 MPV 9.4 Immature Gran % (Auto) 0.2 Neut % (Auto) 77.5 H Lymph % (Auto) 17.2 L [place] % (Auto) 4.8 Eos % (Auto) 0.1 Baso % (Auto) 0.2 Lymph # (Auto) 1.60 [place] # (Auto) 0.5 Eos # (Auto) 0.0 Baso # (Auto) 0.0 Abs Immat Gran (auto) 0.02 Absolute Neuts (auto) 7.2 H Absolute Nucleated RBC 0.000 Nucleated RBC % 0.0 Puncture Site Left radial ABG pH 7.468 H ABG pCO2 36.5 ABG pO2 83.5 ABG PO2/FiO2 Ratio 2.98 ABG HCO3 25.8 ABG O2 Saturation 96.8 ABG O2 Content 19.5 ABG Base Excess 2.4 A-a Gradient 73.1 Oxyhemoglobin 95.0 Total Hemoglobin 14.6 O2 Delivery Device Nasal cannula O2 Liters/Min 2.0 FiO2 28 Sodium 137 Potassium 4.1 Chloride 102 Carbon Dioxide 26 Anion Gap 9 BUN 17 Creatinine 0.43 L Estim Creat Clear Calc 97 Estimated GFR > 60 Glucose 116 H Lactic Acid 0.9 Calcium 9.0 Magnesium 2.1 Total Bilirubin 0.6 AST 88 H ALT 79 H Alkaline Phosphatase 71 Total Protein 8.0 Albumin 4.1 Influenza A (RT-PCR) Positive A Influenza B (RT-PCR) Negative RSV (RT-PCR) Negative SARS-CoV-2 RNA (RT-PCR) Negative Impressions Chest CT 07/27/24 19:44 IMPRESSION: No acute thoracic process detected. Specifically, no left rib fractures identified. Multiple sub-6 mm pulmonary nodules, prior recommendation of follow-up CT lung screening is unchanged EKG: Sinus bradycardia rate 48 QTC 394 possible right ventricular conduction delay All imaging and EKGs personally reviewed and interpreted. And unless stated otherwise agree with radiologic and cardiology interpretation. Assessment and Plan Assessment and plan (1) Hypoxic respiratory failure: Qualifiers: Chronicity: acute Qualified Code(s): J96.01 - Acute respiratory failure with hypoxia Code(s): J96.91 - Respiratory failure, unspecified with hypoxia Status: Acute (2) COPD (chronic obstructive pulmonary disease): Qualifiers: COPD type: COPD with acute exacerbation Qualified Code(s): J44.1 - Chronic obstructive pulmonary disease with (acute) exacerbation Code(s): J44.9 - Chronic obstructive pulmonary disease, unspecified Status: Acute (3) Influenza A: Code(s): J10.1 - Influenza due to other identified influenza virus with other respiratory manifestations Status: Acute (4) Personal history of nicotine dependence: Code(s): Z87.891 - Personal history of nicotine dependence Status: Acute (5) Transaminitis: Code(s): R74.01 - Elevation of levels of liver transaminase levels Status: Acute Plan Patient has acute hypoxic respiratory failure due to acute COPD exacerbation caused by influenza a related bronchitis. Will continue patient on scheduled Solu-Medrol and scheduled nebulizers. Will wean oxygen as tolerated. Continue home benzoate as needed for cough. Will resume patient's home inhaled corticosteroids/beta agonist. Patient has been started on Tamiflu but given the duration of the patient's symptoms the utility of use is not likely to be as helpful. Mild transaminitis likely secondary to acute viral illness. No evidence of synthetic dysfunction. Will repeat labs in in a couple of days. Quality VTE Prophylaxis VTE prophylaxis: pharmacologic ordered (Lovenox 40 mg daily.) Hospitalist MIPS Advance Care Plan I have confirmed that the patient's Advanced Care Plan is present, code status is documented, or surrogate decision maker is listed in patient medical record.: Yes Medication Reconciliation I have utilized all available resources to obtain, update and review the patients current medications (includes all prescriptions, OTC, herbals, cannabis, and nutritional supplements).: Yes
[2024-07-28] MEDS: IPRATROPIUM 0.5 MG/ALBUTEROL SULFATE 2.5 MG AMPUL.NEB 3 ML INHALATION ×4 (07:53→21:10)
[2024-07-28] MEDS: FLUTICASONE/SALMETEROL 115-21 MCG INHALER 1 PUFF 2 PUFF INHALATION ×2 (07:53→21:11)
[2024-07-28] MEDS: OSELTAMIVIR PHOSPHATE 75 MG CAPSULE PO ×2 (08:38→20:35)
[2024-07-28] MEDS: ENOXAPARIN 40 MG/0.4 ML SYRINGE SUB-Q (08:38)
--- NOTE | 2024-07-28 10:09 | PM.IMPN ---
Progress Note: A&P Assessment and Plan (1) Hypoxic respiratory failure: Qualifiers: Chronicity: acute Qualified Code(s): J96.01 - Acute respiratory failure with hypoxia Code(s): J96.91 - Respiratory failure, unspecified with hypoxia Status: Acute Assessment and Plan: Acute hypoxic respiratory failure due to acute COPD exacerbation caused by influenza a related bronchitis - SpO2: 88% on room air on admission - Oxygen supplementation: 2L NC (baseline RA), continue to wean as tolerated, maintain SPO2 > 88% - Suspected cause: COPD exacerbation 07/11 FLU - ABG: pH 7.468, pCO2 36.5, pO2 83.5, HCO3 35.8 - Chest XR: No focal infiltrate or effusion. - Chest CT: No acute thoracic process detected. Specifically, no left rib fractures identified. Multiple sub-6 mm pulmonary nodules, prior recommendation of follow-up CT lung screening is unchanged (2) COPD (chronic obstructive pulmonary disease): Qualifiers: COPD type: COPD with acute exacerbation Qualified Code(s): J44.1 - Chronic obstructive pulmonary disease with (acute) exacerbation Code(s): J44.9 - Chronic obstructive pulmonary disease, unspecified Status: Acute Assessment and Plan: - Chest XR: No focal infiltrate or effusion. - Chest CT: No acute thoracic process detected. Specifically, no left rib fractures identified. Multiple sub-6 mm pulmonary nodules, prior recommendation of follow-up CT lung screening is unchanged Levaquin started on 07/28 Duonebz Solu-Medrol 40 mg IVq12H Monitor vital signs, I&Os, neuro status and patient is a fall risk Monitor serum electrolytes, cultures and CBC Monitor Oxygen saturation, Oxygen via NC; wean oxygen as tolerated, keep SpO2 greater than 88% (3) Influenza A: Code(s): J10.1 - Influenza due to other identified influenza virus with other respiratory manifestations Status: Acute Assessment and Plan: Viral panel: Flu A positive Place in isolation precautions Monitor serum electrolytes, CRP, Lactic acid, troponin, CBC, WBC, temperature curve and follow cultures Oxygen via NC; wean as tolerated. Keep spO2 greater than 88% Patient has been started on Tamiflu but given the duration of the patient's symptoms the utility of use is not likely to be as helpful. (4) Transaminitis: Code(s): R74.01 - Elevation of levels of liver transaminase levels Status: Acute Assessment and Plan: Mild transaminitis likely secondary to acute viral illness. No evidence of synthetic dysfunction. Will repeat labs in in a couple of days. Time Spent With Patient Time with patient: 25 - 35 minutes Subjective Date/time seen: 07/28/24 10:09 Interval history: 59-year-old female with a past medical history of COPD and recent diagnosis of influenza a who presented to the ER with worsening shortness of breath and new rattling in her chest. Patient is pleasant sitting up in bed. She states that she is feeling much better and that her shortness of breath and cough has improved. She continues to require 1-2 L of oxygen supplementation. She has no complaints at this time denying chest pain palpitations, nausea/vomiting pain. Review of Systems Review of Systems: All systems reviewed & are unremarkable except as noted in HPI and below Exam Narrative: AF HR 66 RR 18 Spo2 93 2L NC (baseline RA) BP 140/70 General: female in no acute respiratory distress who is nontoxic appearing, lying semi recumbent in bed. HEENT: Normocephalic. Atraumatic.Extraocular movement intact. Sclera clear and anicteric. No facial asymmetry. Chest: Lungs are clear but diminished to auscultation bilaterally. No wheezes or crackles. CV: Heart was regular rate and rhythm. S1-S2. No murmurs, gallops, or rubs. Abd: Abdomen was soft. Nontender. Nondistended. Positive bowel sounds. Ext: No clubbing, cyanosis, or edema. 2+ DP pulses bilaterally. Neuro: Patient is alert and oriented x4. Speech is clear. Objective Data Vital Signs Vital Signs: Vital Signs - 24 hr 07/27/24 18:23 07/27/24 18:37 07/27/24 19:06 Temperature 97.1 F L Pulse Rate 78 Respiratory Rate 20 Blood Pressure 149/82 H Pulse Oximetry 90 94 Oxygen Delivery Room Air Nasal Cannula Room Air Oxygen Flow Rate 2 07/27/24 20:15 07/27/24 20:15 07/27/24 20:56 Temperature Pulse Rate 57 L 60 70 Respiratory Rate 20 16 19 Blood Pressure 143/67 H 107/85 Pulse Oximetry 97 100 Oxygen Delivery Oxygen Flow Rate 07/27/24 21:10 07/27/24 21:39 07/27/24 21:41 Temperature Pulse Rate 84 84 Respiratory Rate 18 19 Blood Pressure 150/65 H Pulse Oximetry 88 L 89 L Oxygen Delivery Room Air Oxygen Flow Rate 07/27/24 21:45 07/27/24 22:58 07/27/24 22:59 Temperature Pulse Rate 110 H Respiratory Rate 19 Blood Pressure 141/59 H Pulse Oximetry 92 96 96 Oxygen Delivery Nasal Cannula Nasal Cannula Oxygen Flow Rate 3 2 07/27/24 23:09 07/27/24 23:33 07/28/24 00:21 Temperature 98.1 F Pulse Rate 79 72 Respiratory Rate 15 20 Blood Pressure 162/86 H 126/90 Pulse Oximetry 95 95 95 Oxygen Delivery Nasal Cannula Oxygen Flow Rate 2 07/28/24 06:00 07/28/24 08:00 07/28/24 08:00 Temperature 98.0 F Pulse Rate 62 70 Respiratory Rate 20 16 Blood Pressure 158/69 H Pulse Oximetry 92 90 Oxygen Delivery Nasal Cannula Oxygen Flow Rate 0.5 07/28/24 08:04 Temperature Pulse Rate 70 Respiratory Rate 18 Blood Pressure Pulse Oximetry Oxygen Delivery Oxygen Flow Rate Intake/Output Intake/Output: Intake & Output 07/25/24 07/26/24 07/27/24 07/28/24 23:59 23:59 23:59 23:59 Intake Total 1050 440 Balance 1050 440 Meds/Results Medications: Active Medications Generic Name Dose Route Start Last Admin Trade Name Freq PRN Reason Stop Dose Admin Acetaminophen 650 mg 07/28/24 01:46 Acetaminophen 325 Mg Tablet PO Q4H PRN Mild Pain (1-3) or Fever Albuterol/Ipratropium 3 ml 07/28/24 02:00 07/28/24 07:53 Ipratropium 0.5 Mg/Albuterol Sulfate 2.5 Mg Ampul.Neb 3 Ml INHALATION 3 ml Q6HRT DONI Administration Benzonatate 200 mg 07/28/24 01:59 Benzonatate 100 Mg Capsule PO TID PRN cough Enoxaparin Sodium 40 mg 07/28/24 09:00 07/28/24 08:38 Enoxaparin 40 Mg/0.4 Ml Syringe SUB-Q 40 mg DAILY DONI Administration Ketorolac Tromethamine 30 mg 07/28/24 01:46 Ketorolac 30 Mg/Ml Vial (*Bkc) IV PUSH 07/29/24 01:45 Q6H PRN Pain Rated 4-10 Methylprednisolone Sodium Succinate 60 mg 07/28/24 00:00 07/28/24 06:07 Methylprednisolone Sod Succ 125 Mg Vial IV PUSH 60 mg Q6HR DONI Administration Oseltamivir Phosphate 75 mg 07/27/24 22:00 07/28/24 08:38 Oseltamivir Phosphate 75 Mg Capsule PO 08/01/24 21:59 75 mg Q12HR DONI Administration Fluticasone/Salmeterol 2 puff 07/28/24 08:00 07/28/24 07:53 Fluticasone/Salmeterol 115-21 Mcg Inhaler 1 Puff INHALATION 2 puff Q12HRT DONI Administration Radiology Results: ITS Impressions Chest CT 07/27/24 19:44 IMPRESSION: No acute thoracic process detected. Specifically, no left rib fractures identified. Multiple sub-6 mm pulmonary nodules, prior recommendation of follow-up CT lung screening is unchanged Labs Labs: Laboratory Results - last 24 hr 07/27/24 07/27/24 19:15 19:21 WBC 9.3 RBC 4.27 Hgb 14.3 Hct 42.3 MCV 99.1 MCH 33.5 MCHC 33.8 RDW 12.9 Plt Count 270 MPV 9.4 Immature Gran % (Auto) 0.2 Neut % (Auto) 77.5 H Lymph % (Auto) 17.2 L [place] % (Auto) 4.8 Eos % (Auto) 0.1 Baso % (Auto) 0.2 Lymph # (Auto) 1.60 [place] # (Auto) 0.5 Eos # (Auto) 0.0 Baso # (Auto) 0.0 Abs Immat Gran (auto) 0.02 Absolute Neuts (auto) 7.2 H Absolute Nucleated RBC 0.000 Nucleated RBC % 0.0 Puncture Site Left radial ABG pH 7.468 H ABG pCO2 36.5 ABG pO2 83.5 ABG PO2/FiO2 Ratio 2.98 ABG HCO3 25.8 ABG O2 Saturation 96.8 ABG O2 Content 19.5 ABG Base Excess 2.4 A-a Gradient 73.1 Oxyhemoglobin 95.0 Total Hemoglobin 14.6 O2 Delivery Device Nasal cannula O2 Liters/Min 2.0 FiO2 28 Sodium 137 Potassium 4.1 Chloride 102 Carbon Dioxide 26 Anion Gap 9 BUN 17 Creatinine 0.43 L Estim Creat Clear Calc 97 Estimated GFR > 60 Glucose 116 H Lactic Acid 0.9 Calcium 9.0 Magnesium 2.1 Total Bilirubin 0.6 AST 88 H ALT 79 H Alkaline Phosphatase 71 Total Protein 8.0 Albumin 4.1 Influenza A (RT-PCR) Positive A Influenza B (RT-PCR) Negative RSV (RT-PCR) Negative SARS-CoV-2 RNA (RT-PCR) Negative Quality VTE Prophylaxis VTE prophylaxis: pharmacologic ordered
[2024-07-28] MEDS: levoFLOXacin 750 MG TABLET PO (10:52)
[2024-07-28] MEDS: MELATONIN 3 MG TABLET PO (20:35)
[2024-07-29] MEDS: methylPREDNISolone SOD SUCC 125 MG VIAL 60 MG IV PUSH ×2 (00:40→05:22)
[2024-07-29] MEDS: KETOROLAC 30 MG/ML VIAL (*BKC) IV PUSH (00:48)
[2024-07-29 05:22] VITALS: BP 140/76; PULSE 79; RESP 18; TEMP 36.5; O2SAT 91
[2024-07-29 06:24] LABS: Basophils Percent Auto 0.1 % (0.2-1.2); Hematocrit 40.1 % (37.0-47.0); Hemoglobin 13.4 g/dL (12.0-15.0); Immature Granulocyte Absolute 0.05 K/mm3 (0.00-0.031); Immature Granulocyte Percent A 0.5 % (0-0.5); Lymphocytes Absolute Auto 0.44 K/mm3 (0.9-3.2); Lymphocytes Percent Auto 4.2 % (18.3-44.2); Mean Corpuscular HGB Conc 33.4 g/dl (32-36); Mean Corpuscular Volume 98.8 fl (80-100); Mean Platelet Volume 9.5 fl (7.4-10.4); Monocytes Absolute Auto 0.3 K/mm3 (0.1-0.6); Monocytes Percent Auto 3.1 % (2.6-8.5); Neutrophils Absolute Auto 9.6 K/mm3 (1.3-6.7); Neutrophils Percent Auto 92.1 % (45.5-73.1); Platelet Count Result 297 k/mm3 (150-375); Red Blood Count 4.06 M/mm3 (4.2-5.4); Red Cell Distribution Width 12.7 % (11.5-14.5); White Blood Count 10.4 K/mm3 (4.5-10.0)
[2024-07-29 06:45] LABS: Alanine Aminotransferase 62 U/L (6-35); Albumin Level 3.6 g/dL (3.5-5.1); Alkaline Phosphatase 65 U/L (38-126); Anion Gap 10 mmol/L (4-12); Aspartate Amino Transferase 39 U/L (14-36); Bilirubin,Total 0.7 mg/dL (0.2-1.3); Blood Urea Nitrogen 18 mg/dL (7-17); Calcium 8.9 mg/dL (8.4-10.2); Carbon Dioxide 23 mmol/L (22-30); Chloride 102 mmol/L (98-107); Estimated CRCL calculation 75 ml/min; Estimated Glomerular Filt Rate > 60; Glucose 163 mg/dL (65-110); Sodium 135 mmol/L (137-145)
[2024-07-29] MEDS: ENOXAPARIN 40 MG/0.4 ML SYRINGE SUB-Q (09:36)
[2024-07-29] MEDS: OSELTAMIVIR PHOSPHATE 75 MG CAPSULE PO (09:36)
[2024-07-29] MEDS: levoFLOXacin 750 MG TABLET PO (09:36)
[2024-07-29] MEDS: methylPREDNISolone SOD SUCC 40 MG VIAL IV PUSH (09:36)
[2024-07-29 09:40] VITALS: O2SAT 92
[2024-07-29] MEDS: IPRATROPIUM 0.5 MG/ALBUTEROL SULFATE 2.5 MG AMPUL.NEB 3 ML INHALATION (09:40)
[2024-07-29] MEDS: FLUTICASONE/SALMETEROL 115-21 MCG INHALER 1 PUFF 2 PUFF INHALATION (09:46)
[2024-07-29 09:47] VITALS: PULSE 81; RESP 8
--- NOTE | 2024-07-29 13:10 | P.DS_ITS ---
DS: Admitting Diagnosis Discharge Date Admitting Diagnosis hypoxic respiratory failure COPD Flu A Transaminitis DS: Discharge Diagnosis Discharge Diagnosis (1) Hypoxic respiratory failure: Qualifiers: Chronicity: acute Qualified Code(s): J96.01 - Acute respiratory failure with hypoxia Code(s): J96.91 - Respiratory failure, unspecified with hypoxia Status: Acute (2) COPD (chronic obstructive pulmonary disease): Qualifiers: COPD type: COPD with acute exacerbation Qualified Code(s): J44.1 - Chronic obstructive pulmonary disease with (acute) exacerbation Code(s): J44.9 - Chronic obstructive pulmonary disease, unspecified Status: Acute (3) Influenza A: Code(s): J10.1 - Influenza due to other identified influenza virus with other respiratory manifestations Status: Acute (4) Transaminitis: Code(s): R74.01 - Elevation of levels of liver transaminase levels Status: Acute DS: Summary Hospital Course Reason for hospitalization: hypoxic respiratory failure COPD Flu A Transaminitis Hospital Course: 59-year-old female with a past medical history of COPD and recent diagnosis of influenza a who presented to the ER with worsening shortness of breath and new rattling in her chest. On admission patient was noted to be hypoxic with SpO2 88% on room air. She was placed on 2L NC at that time. ABG showed pH 7.468, pCO2 36.5, pO2 83.5, HCO3 35.8. Viral panel positive for influenza A. Chest XR showed no focal infiltrate or effusion. Chest CT showed no acute thoracic process detected. Specifically, no left rib fractures identified. Multiple sub-6 mm pulmonary nodules, prior recommendation of follow-up CT lung screening is unchanged. She was started on tamiflu, levaquin and steroids for cocurrent flu and COPD exacerbation. Patient discharged with antibiotics, steroids and tamiflu to complete the course. Prior to discharge patient was able to be weaned back to room air and satting within normal limits. Patient had no complaints at time of discharge denying chest pain, shortness a breath, palpitations, nausea/vomiting, abdominal pain, and dizziness/lightheadedness. Patient discharged home in a stable condition. She is to follow up with her primary care provider in 1 week. Status at Discharge Functional status at discharge: independent ambulation Time Spent with Patient Time attestation: Total time spent providing and/or coordinating discharge services: Time spent: Greater than 30 minutes Exam Narrative: AF HR 79 RR 18 SpO2 91 BP 140/76 General: female in no acute respiratory distress who is nontoxic appearing, sitting up in bed HEENT: Normocephalic. Atraumatic.Extraocular movement intact. Sclera clear and anicteric. No facial asymmetry. Chest: Lungs are clear to auscultation bilaterally. No wheezes or crackles. CV: Heart was regular rate and rhythm. S1-S2. No murmurs, gallops, or rubs. Abd: Abdomen was soft. Nontender. Nondistended. Positive bowel sounds. Ext: No clubbing, cyanosis, or edema. 2+ DP pulses bilaterally. Neuro: Patient is alert and oriented x4. Speech is clear. DS: Data Data Completed and Pending Completed studies during hospitalization: chest xr chest ct Labs on day of discharge: Labs from last 24 hours 07/29/24 06:04 WBC 10.4 H RBC 4.06 L Hgb 13.4 Hct 40.1 MCV 98.8 MCH 33.0 MCHC 33.4 RDW 12.7 Plt Count 297 MPV 9.5 Immature Gran % (Auto) 0.5 Neut % (Auto) 92.1 H Lymph % (Auto) 4.2 L [place] % (Auto) 3.1 Eos % (Auto) 0.0 Baso % (Auto) 0.1 L Lymph # (Auto) 0.44 L [place] # (Auto) 0.3 Eos # (Auto) 0.0 Baso # (Auto) 0.0 Abs Immat Gran (auto) 0.05 H Absolute Neuts (auto) 9.6 H Absolute Nucleated RBC 0.000 Nucleated RBC % 0.0 Sodium 135 L Potassium 4.0 Chloride 102 Carbon Dioxide 23 Anion Gap 10 BUN 18 H Creatinine 0.57 L Estim Creat Clear Calc 75 Estimated GFR > 60 Glucose 163 H Calcium 8.9 Total Bilirubin 0.7 AST 39 H ALT 62 H Alkaline Phosphatase 65 Total Protein 7.0 Albumin 3.6 Discharge Plan Discharge Attending physician on discharge: Mason De La Rosa Consulting providers: Annie Avila Discharging Clinician: Annie Avila Anticipated Discharge Date/Time: 07/29/24 13:09 Patient Disposition: Home, Self-Care Activity: as tolerated Diet: as tolerated and heart healthy Discharge Instructions: Discharge disposition: Patient admitted to the hospital for a COPD exacerbation secondary to Flu A Patient initially required oxygen supplementation but was able to be weaned back to room air prior to discharge Take medications as prescribed Levaquin daily, course to be completed on 08/01 Tamiflu twice a day, course to be completed on 08/01 Prednisone daily, course to be completed on 08/02 Attached is information on these medications Take caution while standing, rising, or moving Change positions slowly taking a break between each position change If you standing feel dizzy sit back down and take a break Encouraged to continue with yearly vaccinations Return to the emergency department if he developed sudden shortness of breath, chest pain, nausea, vomiting, upset stomach or intractable diarrhea Return to the emergency department if you develop fever greater than 101.5 Follow-up with the primary care physician within 1-2 weeks Thank you for choosing [facility] for your healthcare needs Patient Instructions: Antibiotic Form, Prednisone (By mouth), Levofloxacin (By mouth), Oseltamivir (By mouth), Influenza (DC), COPD (Chronic Obstructive Pulmonary Disease) (DC) Patient Language: Greenlandic Stand Alone Forms: General Discharge Information, Work/School Release IP Follow-up/Referrals: Smai Stern DO [Primary Care Provider] - 1 Week Discharge Medications: New oseltamivir [Tamiflu] 75 mg Capsule 75 mg PO Q12HR Qty: 7 0RF levofloxacin 750 mg tablet 750 mg PO DAILY Qty: 3 0RF prednisone 10 mg tablet 10 mg PO DAILY Qty: 3 0RF Continued budesonide-formoterol [Symbicort] 160-4.5 mcg/actuation HFA aerosol inhaler 2 puff inhalation Q12H Qty: 10.2 3RF Rx Instructions: Rinse mouth and spit after each use estradiol 2 mg tablet 2 mg PO DAILY albuterol sulfate 90 mcg/actuation HFA aerosol inhaler 2 puff inhalation Q6H PRN (Reason: shortness of breath or wheezing) Qty: 18 3RF benzonatate 200 mg capsule 200 mg PO TID PRN (Reason: cough) Qty: 30 0RF Discontinued methylprednisolone [Medrol ([place])] 4 mg tablets,dose pack See Rx Instructions .ROUTE .COMPLEX Qty: 21 0RF Rx Instructions: for 6 days doxycycline hyclate 100 mg capsule 100 mg PO BID 7 Days Qty: 14 0RF Date of admission: 07/27/24 22:47 Primary Care Provider: Sami Stern Admitting Provider: Teresa Duenas Attending physician on admission: Teresa Duenas Condition: Stable Hospitalist MIPS Heart Failure (Exclusion) Patient has history of Heart Transplant or Left Ventricular Assistive Device?: No IF YES, STOP HERE Heart Failure (Qualifier) Patient has current or prior documentation of LVEF less than or equal to 40%, or mod/servere depressed LVSF?: No IF NO, STOP HERE
== END 2024-07-29 14:26 | disposition home or self-care (01) | DRG 194 ==
LOC: ANHED 21:56 → ANH2MED 22:55
PROVIDERS: Admitting Provider Internal Medicine; Emergency Provider Emergency Medicine; PCP Internal Medicine; Visit Provider Student in an Organized Health Care Education/Training Program
DX: J10.1 Influenza due to other identified influenza virus with other respiratory manifestations (principal); J44.1 Chronic obstructive pulmonary disease with (acute) exacerbation; R91.8 Other nonspecific abnormal finding of lung field; R74.01 Elevation of levels of liver transaminase levels; Z87.891 Personal history of nicotine dependence; Z20.822 Contact with and (suspected) exposure to COVID-19; Z86.718 Personal history of other venous thrombosis and embolism
CPT/HCPCS: 36415; 36600; 71046; 71250; 80053; 82805; 83605; 83735; 85018; 85025; 87637; 93005; 94640; 96365; 96367; 96368; 96375; 99284; 99285; A9270; J0456; J0696; J1650; J1885; J2919; J3475; J7030

== ENCOUNTER 2025-03-18 01:11 | Day surgery (SDC) | payer OTHER, SELFPAY ==
[2025-03-11 13:27] VITALS: BMI 25.7
--- NOTE | 2025-03-11 13:39 | SUR.PREOP ---
[facility] has started construction of its new state of the art ER which will open Spring 2026. With this, we anticipate parking may be a challenge for some our surgical patients and families. Parking spaces are limited but are available for all Surgical, obstetrics, and ER patients sharing this lot. If you arrive and find you are having a hard time finding a parking space, please note that we understand the challenges, please drive around the hospital and park near Hospital Entrance 1. When you enter this entrance, you can ask a volunteer to direct or take you back to the surgical waiting area to check in. We appreciate everyone?s understanding of these expected challenges while we build for your future. Report to the Outpatient Waiting Room, entrance under the green pavilion located off [address], at time __7am on date __03/18/25___. Planned Procedure Time: __9am .? Time changes happen often and if your time is changed the preop area will call you the afternoon before. - You and your visitor will be asked to self-screen and do not enter if you have any COVID symptoms. Please call surgeon if you need to reschedule. - A mask is optional within the hospital at this time. Patients may have clear liquids (water, carbonated beverages, clear teas, apple juice) until 3 hours prior to surgery with a maximum of 20 ounces. - No food from midnight until time of surgery and no smoking, or chewing tobacco (or any form of nicotine). No chewing gum, candy or mints. - Infants may have breast milk until 4 hours before surgery, infant formula 6 hours prior to surgery. - Children will be allowed to drink immediately following surgery.? If applicable, please bring a bottle or sippy cup to assist with drinking. Juice, water, soda, and popsicles are readily available.? For infants on formula, please bring formula the day of surgery.? Pacifiers are allowed. Take only the following medications with a SIP of water on the morning of surgery: _albuterol PRN and symbicort. DO NOT STOP ANY OF YOUR OTHER PRESCRIPTION MEDICATIONS PRIOR TO SURGERY EXCEPT THE FOLLOWING Hold all vitamins and supplements for 3 days per anesthesiologist. Medications to discontinue per physician . Date to take last dose___n/a Please no make-up, nail bolivian, hairspray, perfume, deodorant, or body powder the day of surgery.? No jewelry (including any body piercings) or valuables the day of surgery, leave them at home.? Please take a shower or bath the night before, or the morning of, surgery with an antibacterial soap.? Wear comfortable, loose fitting clothing.? Children are encouraged to wear pajamas. - Jewelry must be removed prior to entering the operating room.? Rings and piercings that are not removed may be cut off. - The hospital will not accept responsibility for valuables.? - Please leave all valuables, including medications, at home the day of surgery. If you are going home after surgery, a licensed electric train driver must drive you home.? - NO public transportation without another adult if you receive anesthesia. - We recommend that an adult stay with you for 24 hours following discharge. - We also recommend that you do not drive, make important decision, drink alcoholic beverages, or take any drugs that were not prescribed by your health care provider for at least 24 hours after your discharge time. For Pediatric surgeries, we recommend two adults accompany the child home. Follow any additional instructions given to you from your surgeon. Telephone instructions given to ___Poornima and asked if any additional questions and then verbalized understanding. Patient advised to call surgeon office or pre surgery nurse liaison [phone] if any additional questions.
--- NOTE | ~2025-03-18 | XR_ITS ---
EXAMINATION: XR surgery orthopedic DATE: 03/18/2025 10:11 INDICATION: Right foot arthrodesis TECHNIQUE: 2 fluoroscopic images of the forefoot were obtained during procedure performed by Dr. Rebolledo. Radiologist was not present for the imaging or procedure. The amount of fluoroscopy time used during this procedure was 0.1 minutes. Total DAP was 0.567 cGym^2. COMPARISON: None. FINDINGS: Postoperative change of bunionectomy with osteotomy at the medial head of the first metatarsal as well as the first metatarsophalangeal arthrodesis which is fixed with a compression screw and dorsal plate and screws. Alignment appears near-anatomic. No fractures identified. Remaining joint spaces are normal. IMPRESSION: 1. Subtle changes of bunionectomy and instrumented first metatarsophalangeal arthrodesis. See procedure note for further detail. Reviewed, dictated and finalized at location A. IMPRESSION: 1. Subtle changes of bunionectomy and instrumented first metatarsophalangeal ar throdesis. See procedure note for further detail.
--- NOTE | 2025-03-18 07:18 | WPDHPUPDATE1 ---
History and Physical Update Update Date/Time: 03/18/25 07:18 History and Physical has been reviewed, including an updated exam of the patient. There are NO changes in the patient's condition. Risks, benefits, and alternatives have been discussed and questions answered. Patient agrees to proceed with procedure.
[2025-03-18 07:21] VITALS: BP 114/50; PULSE 64; RESP 16; TEMP 36.6; O2SAT 97
[2025-03-18] MEDS: LACTATED RINGERS 1,000 ML 30 ML IV CONT ×2 (07:30→10:20)
--- NOTE | 2025-03-18 09:02 | WPDANESEPPF ---
Anes - Initial Pre Proc Eval Procedure: Operation Date: 03/18/25 09:00 Proposed Procedures p Arthrodesis First Metatarsophalangeal Joint Right Foot - Bernardo Rebolledo Jr., DPM Date/Time: 03/18/25 09:02 Surgeon: Bernardo Rebolledo Jr., DPM Pre Op Diagnosis: Bunion Right Foot Patient Data Age: 59 Gender: F Height: 1.6 m Weight: 63.8 kg Last Vital Signs Temp 36.6 C 03/18/25 07:21 Pulse 64 03/18/25 07:21 Resp 16 03/18/25 07:21 BP 114/50 L 03/18/25 07:21 Pulse Ox 97 03/18/25 07:21 O2 Del Method Room Air 03/18/25 07:21 Allergies Allergy/AdvReac Type Severity Reaction Status Date / Time No Known Allergies Allergy Unknown Verified 03/18/25 08:14 Home Medications ?Medication ?Instructions ?Recorded ?Confirmed ?Type estradiol 2 mg tablet 2 mg PO DAILY 07/27/24 03/18/25 History ketoconazole 2 % topical cream 1 applic topical DAILY #30 grams 10/25/24 03/18/25 Rx albuterol sulfate 90 mcg/actuation 2 puff inhalation Q6H PRN 11/12/24 03/18/25 Rx aerosol inhaler shortness of breath or wheezing #18 grams zolpidem 12.5 mg tablet,extended 12.5 mg PO HS 02/21/25 03/18/25 History release,multiphase Symbicort 160 mcg-4.5 2 puff inhalation BID #10.2 grams 02/22/25 03/18/25 Rx mcg/actuation HFA aerosol inhaler (budesonide-formoterol) oxycodone-acetaminophen 5 mg-325 1 tablet PO Q6H PRN pain #40 tabs 03/08/25 Rx mg tablet (Percocet) rivaroxaban 10 mg tablet (Xarelto) 10 mg PO DAILY #14 tabs 03/08/25 Rx Patient hx anesthesia problems: none Family hx anesthesia problems: none Results Review: All pre-operative results and documents have been reviewed as part of the pre-operative evaluation. [facility]LY [facility] Past Medical History Medical History Former smoker Quit 2016 DVT (deep venous thrombosis) Due to prolonged immobility from hospitalization Psoriasis COPD (chronic obstructive pulmonary disease) respiratory failure requiring intubation 2016 Surgical History Surgical History History of bladder suspension procedure History of tonsillectomy and adenoidectomy History of total abdominal hysterectomy and bilateral salpingo-oophorectomy History of back surgery (~1982) Scoliosis Family History Family History Father Patient's father is in good health Sibling Patient's sister is in good health Patient's brother is in good health Mother Family history of lung cancer, Onset Age: 61 Social History Social History (Updated 02/21/25 @ 13:19 by Lele Smiley APRN) Social History: Patient lives at home with her of 38 years. They raised 2 sons. She had a 1.5 pack per day smoking history but quit smoking in 2015. She drinks alcohol about once a month in moderation. She denies any history of illicit substance use. Code status: Full code Surrogate decision maker: Smoking packs per day: 1.5 Smoking cigarettes per day: 30.0 Years smoked: 20 Smoking pack-years: 30.00 Smoking status: Light tobacco smoker Tobacco type: cigarettes Second hand tobacco smoke exposure: No Smoking end date: 04/08/16 Additional smoking assessment comments: 1.5 PPD x 30 years Alcohol intake: current Drinks per week: 2 Substance use: never Substance use type: does not use Do You Feel Safe in your Home?: Yes Lack of Transportation: No Lack of Food: Never True Current Housing: I Have Housing Concerned About Future Housing: No Difficulty Paying Gas/Electric Bills: No Difficulty Paying for Meds: No Currently Unemployed: No Education: High School Diploma/GED Difficulty w/ Childcare or Family Care: No Living arrangements: with family Spiritual care concerns: No Anes - Eval Final PreProcedure Day of Procedure 03/18/25 09:02 Patient weight: normal Heart: regular rate and rhythm Lungs: decreased breath sounds Airway: Mallampati scale class 1 Neurological: alert and oriented Last oral intake: >/= 8 hours ASA classification: III Emergent: no Anesthetic plan: proceed Anesthesia type and monitoring: general LMA and standard monitoring Results Review: All pre-operative results and documents have been reviewed as part of the pre-operative evaluation. Informed Consent: The patient's anesthetic plan and its attendant risks and benefits were discussed with the patient/family/POA. Questions were solicited and answers provided to the satisfaction of the patient/family/POA.
[2025-03-18] MEDS: ceFAZolin 2 GM in SODIUM CHLORIDE 0.9% IV 50 ML 100 ML IVPB (09:15)
[2025-03-18] MEDS: LIDOCAINE 2% LOCAL INJ 20 ML VIAL 10 ML INFILTRATE (09:37)
[2025-03-18] MEDS: BUPivacaine HCL 0.5% 10 ML AMP INFILTRATE (09:39)
[2025-03-18 10:20] VITALS: BP 130/53; PULSE 62; RESP 20; TEMP 36.4; O2SAT 100
--- NOTE | 2025-03-18 10:29 | P.OP_ITS ---
Procedure Note - Detailed Date of Procedure 03/18/25 Pre-op Diagnosis Bunion Right Foot Post-op Diagnosis Same Procedure Performed Arthrodesis of the 1st metatarsal phalangeal joint right foot Surgeon Bernardo Rebolledo Jr., DPM Anesthesia General and Local Indications Painful right forefoot Findings Joing degeneration noted along the medial 1st metatarsal phalangeal joint Description of Procedure PROCEDURE IN DETAIL: Under mild sedation, the patient was brought into the operating room, placed on the operating table in supine position. A pneumatic ankle tourniquet was placed about the patient's ipsilateral ankle. Following general anesthesia and a Olsen Block with 20ccs of 2% Lidocaine plain and 0.5% Marcaine plain, the foot was then scrubbed, prepped, and draped in the usual aseptic manner. An Esmarch bandage was then used to exsanguinate the patient's foot and the pneumatic ankle tourniquet was then inflated. Surgery began in the following manner: Attention was directed to the dorsal medial aspect of the 1st metatarsophalangeal joint right foot where there was a moderate subcutaneous prominence was noted. The incision was made starting along the central shaft of the 1st metatarsal and extending just proximal to the interphalangeal joint of the hallux. The incision was continued deep down through the subcutaneous tissues using sharp and blunt dissection. All bleeders were cauterized as necessary. At this point, the dissection was continued down to the level of the periosteum and capsular structures overlying the 1st metatarsophalangeal joint. A full length periosteum and capsular incision was made just medial to the extensor hallucis longus tendon. The periosteum and capsular structures were freed from the base of the proximal phalanx as well as the distal 1st metatarsal. At this point, the 1st metatarsophalangeal joint was identified. There was loss of articular cartilage to the head of the 1st metatarsal as well as the base of the proximal phalanx worse centrally and medially. There was significant broadening and hypertrophy of the 1st metatarsophalangeal joint. Utilizing a sagittal bone saw, the hypertrophied 1st metatarsal was resected dorsally, medially, and laterally. A power bur was used to make sure that there were no rough edges and also to further debride the hypertrophic 1st metatarsal. Next, a rongeur was used to resect the hypertrophic base of the proximal phalanx. At this point, the reamer system for the Maxforce plate system was used to denude the degenerative cartilage from the head of the 1st metatarsal as well as the base of the proximal phalanx. The cartilage and subchondral bone were fully debrided utilizing the reamer system until healthy bleeding bone was noted. Next, a 2-0 drill bit was used to further fenestrate the head of the 1st metatarsal as well as the base of the proximal phalanx in order to allow fusion across the 1st metatarsophalangeal joint. Next, a guide wire for a 3.0 headless Arthrex compression screw was driven from the medial aspect of the base of the proximal phalanx into the head of the 1st metatarsal in order to serve as temporary fixation, next the cannulated screw was driven and provided excellent compression. Next A large steel plate was used to make sure that the hallux was in a rectus position both in the sagittal plane as well as the frontal plane. Excellent position of the hallux was noted. Next, a Maxforce plate was placed atop the 1st metatarsophalangeal joint held in position with [address] wires. Utilizing standard principles and techniques, the distal drill holes were drilled and three 3.0 mm fully-threaded locking screws were driven from dorsal to plantar holding the distal aspect of the plate intact. At this point, the Maxforce compression system was utilized from dorsal distal to proximal plantar across the 1st metatarsophalangeal joint with excellent compression noted. Next, a 3.0mm locking screw was used to further compress the joint along the oblong dynamic compression screw slot. Next, the remaining 2 proximal drill holes were drilled from dorsal to plantar across and two 3.0 mm locking screws were driven from dorsal to plantar. The wound site was then flushed with copious amounts of sterile saline. Fluoroscopy was used to make sure that the plate was appropriately aligned and oriented and also to make sure that the screws were of appropriate length and orientation. Excellent position of the 1st metatarsophalangeal joint was visualized in all planes. Next, the periosteum and capsular structures were reapproximated with 3-0 Vicryl. Next, the subcutaneous structures were reapproximated with 4-0 Vicryl. Next, the skin was reapproximated and coapted utilizing 4-0 Monocryl in running subcuticular suture fashion technique. Upon completion of the procedure, the incision was dressed with Steri-Strips, Adaptic, 4x4s, Kerlix, and Coban. The pneumatic ankle tourniquet was then deflated and a prompt hyperemic response was noted to all digits of the foot. A posterior splint was then applied to the affected lower extremity. It is important to note that Dr. Rebolledo was present throughout the procedure. The patient did very well with the procedure and the anesthesia. The patient was transferred to the recovery room with vital signs stable and vascular status intact to all toes of the foot. Following a period of postoperative monitoring, the patient will be discharged home on the following written and oral postoperative instructions: 1. Keep the dressing clean, dry, and intact. 2. The patient to be strictly nonweightbearing with a knee scooter or crutches. 3. The patient should ice and elevate the foot when at rest. 4. The patient should contact Dr. Rebolledo for all postop care and if any problems should arise. 5. Prescriptions were written for Percocet 5/325, dispensed 40 to be taken 1 p.o. q.4-6 hours as needed for severe pain. Furthermore, the patient should also take Xarelto 10 mg to be taken 1 p.o. daily starting 24 hours after surgery to prevent DVT for 14 days followed by one 325 mg aspirin until walking is re-initiated. Implants Arthrex Maxforce Plate and screw system with One Kreulock Screw 3.0mm and 5 locking screws 3.0mm One Arthrex Headless cannulated screw Estimated Blood Loss 1 Drains No Packing No Pathology None sent Complications No immediate complications Condition Stable Disposition Same day
[2025-03-18 10:30] VITALS: BP 118/50; PULSE 57; RESP 14; O2SAT 100
[2025-03-18 10:39] VITALS: BP 132/56; PULSE 66; RESP 18; O2SAT 97
[2025-03-18 10:50] VITALS: BP 127/78; PULSE 74; RESP 18
[2025-03-18] MEDS: ONDANSETRON INJ 4 MG/2 ML VIAL IV PUSH (11:02)
[2025-03-18 11:20] VITALS: BP 106/49; PULSE 84; RESP 16
== END 2025-03-18 11:30 | disposition home or self-care (01) ==
PROVIDERS: PCP Internal Medicine; Visit Provider Podiatrist Foot & Ankle Surgery
PROC: (CPT 28750; principal; 2025-03-18 09:00)
DX: M20.11 Hallux valgus (acquired), right foot (principal); M19.071 Primary osteoarthritis, right ankle and foot; J44.9 Chronic obstructive pulmonary disease, unspecified; L40.9 Psoriasis, unspecified; Z79.51 Long term (current) use of inhaled steroids; Z79.891 Long term (current) use of opiate analgesic; Z79.01 Long term (current) use of anticoagulants; Z98.890 Other specified postprocedural states; Z98.1 Arthrodesis status; Z87.891 Personal history of nicotine dependence; Z86.718 Personal history of other venous thrombosis and embolism; Z80.1 Family history of malignant neoplasm of trachea, bronchus and lung
CPT/HCPCS: 28750; 99199; J0690; C1713; C1769; J1100; J2003; J2405; J2704; J7120